=== PATIENT | male | born 1995 | race Caucasian/White ===

== ENCOUNTER 2020-06-12 10:49 | Outpatient (REF) | payer BC, SELFPAY ==
[2020-06-13 13:52] LABS: C. trachomatis RNA TMA DETECTED (NOT DETECTED); N. gonorrhoeae RNA TMA NOT DETECTED (NOT DETECTED)
[2020-06-14 01:52] LABS: Herpes Simplex Type 1 IgG <0.90 index; Herpes Simplex Type 2 IgG 3.17 index
[2020-06-15 04:08] LABS: HIV AB/AG Nonreactive (Nonreactive); HIV Num 1 0.09 S/CO (0.00-0.99)
== END 2020-06-12 10:50 | disposition home or self-care (01) ==
LOC: HO.HMGCLDS 10:49
PROVIDERS: PCP Internal Medicine; Visit Provider Internal Medicine
DX: Z11.3 Encounter for screening for infections with a predominantly sexual mode of transmission (principal); Z11.4 Encounter for screening for human immunodeficiency virus [HIV]; Z20.2 Contact with and (suspected) exposure to infections with a predominantly sexual mode of transmission
CPT/HCPCS: 36415; 86592; 86695; 86696; 86780; 87389; 87491; 87591

== ENCOUNTER 2021-02-03 12:22 | Outpatient (REF) | payer BC, SELFPAY ==
[2021-02-04 02:30] LABS: CT PCR NOT DETECTED (Not Detect.); NG PCR NOT DETECTED (Not Detect.)
[2021-02-04 09:56] LABS: Herpes Simplex Type 1 IgG <0.90 index; Herpes Simplex Type 2 IgG 2.14 index
[2021-02-05 08:10] LABS: Syphilis Screen Nonreactive (Nonreactive)
[2021-02-05 09:01] LABS: HIV AB/AG Nonreactive (Nonreactive)
== END 2021-02-03 12:23 | disposition home or self-care (01) ==
LOC: HO.HMGCLDS 12:22
PROVIDERS: PCP Internal Medicine; Visit Provider Internal Medicine
DX: Z11.3 Encounter for screening for infections with a predominantly sexual mode of transmission (principal)
CPT/HCPCS: 86695; 86696; 86780; 87389; 87491; 87591

== ENCOUNTER 2021-10-08 10:22 | Outpatient (REF) | payer BC, SELFPAY ==
[2021-10-08 10:25] LABS: MANUAL DIFF FLAG NO
[2021-10-08 11:14] LABS: Appearance Urine CLEAR; Color Urine YELLOW; Glucose Urine UA NEG (NEG); Leukocyte Esterase Urine NEG (NEG); Nitrite Urine NEG (NEG); Specific Gravity - Urine 1.025 (1.005-1.025); Urine Blood NEG (NEG); Urine Ketones NEG (NEG); Urine Protein NEG (NEG-TRACE)
[2021-10-08 11:17] LABS: Basophils Percent Auto 0.8 % (0-2); Eosinophils Absolute Auto 0.1 X10*3/uL (0.0-0.4); Eosinophils Percent Auto 2.8 % (0-4); Hematocrit 47.4 % (42.0-52.0); Hemoglobin 16.3 g/dl (14.0-18.0); Imm Gran Abs Auto 0.01 X10*3/uL (0.00-0.03); Imm Gran Pct Auto 0.2 % (0.0-0.4); Lymphocytes Absolute Auto 1.4 X10*3/uL (1.2-4.9); Lymphocytes Percent Auto 27.5 % (20-40); Mean Corpuscular HGB Conc 34.4 g/dl (31.0-36.0); Mean Corpuscular Volume 90.1 fL (80.0-98.0); Mean Platelet Volume 11.5 fL (9.4-12.4); Monocytes Absolute Auto 0.5 X10*3/uL (0.1-1.2); Monocytes Percent Auto 9.3 % (2-11); Neutrophils Percent Auto 59.4 % (45-73); Platelet Count 226 X10*3/uL (160-400); Red Blood Count 5.26 X10*6/uL (4.60-5.80); Red Cell Distribution Width 12.4 % (11.0-16.0); White Blood Count 5.1 X10*3/uL (4.8-10.8)
[2021-10-08 11:26] LABS: Alanine Aminotransferase 25 U/L (0-40); Albumin Level 4.4 g/dL (3.5-5.0); Alkaline Phosphatase 52 U/L (39-117); Anion Gap 12 (12-20); Aspartate Amino Transferase 21 U/L (5-37); Bilirubin Total 0.8 mg/dL (0.0-1.0); Blood Urea Nitrogen 12 mg/dL (9-16); Calcium 9.7 mg/dL (8.4-10.2); Carbon Dioxide 28 mmol/L (22-29); Chloride 104 mmol/L (96-108); Cholesterol 142 mg/dL; Estimated Glomerular Filt Rate > 60; Glucose Fasting 87 mg/dL (60-99); HDL Cholesterol 49 mg/dL; LDL Cholesterol Calculated 80 mg/dl; Sodium 140 mmol/L (135-145); Total Protein 6.9 g/dL (6.5-8.0); Triglycerides 69 mg/dL
== END 2021-10-08 10:23 | disposition home or self-care (01) ==
LOC: HO.LNP 10:22
PROVIDERS: Visit Provider Internal Medicine
DX: Z00.00 Encounter for general adult medical examination without abnormal findings (principal)
CPT/HCPCS: 80053; 80061; 81003; 85025

== ENCOUNTER 2022-10-14 10:21 | Outpatient (REF) | payer BC, SELFPAY ==
[2022-10-14 10:24] LABS: MANUAL DIFF FLAG NO
[2022-10-14 10:50] LABS: Basophils Percent Auto 0.6 % (0-2); Eosinophils Absolute Auto 0.1 X10*3/uL (0.0-0.4); Eosinophils Percent Auto 2.1 % (0-4); Hematocrit 48.6 % (42.0-52.0); Hemoglobin 16.9 g/dl (14.0-18.0); Imm Gran Abs Auto 0.01 X10*3/uL (0.00-0.03); Imm Gran Pct Auto 0.2 % (0.0-0.4); Lymphocytes Absolute Auto 1.4 X10*3/uL (1.2-4.9); Lymphocytes Percent Auto 27.3 % (20-40); Mean Corpuscular HGB Conc 34.8 g/dl (31.0-36.0); Mean Corpuscular Hemoglobin 30.8 pg (27.0-33.0); Mean Corpuscular Volume 88.7 fL (80.0-98.0); Mean Platelet Volume 11.1 fL (9.4-12.4); Monocytes Absolute Auto 0.5 X10*3/uL (0.1-1.2); Monocytes Percent Auto 9.2 % (2-11); Neutrophils Absolute Auto 3.1 x10*3/uL (2.0-8.3); Neutrophils Percent Auto 60.6 % (45-73); Platelet Count 242 X10*3/uL (160-400); Red Blood Count 5.48 X10*6/uL (4.60-5.80); Red Cell Distribution Width 12.2 % (11.0-16.0); White Blood Count 5.1 X10*3/uL (4.8-10.8)
[2022-10-14 11:12] LABS: Alanine Aminotransferase 36 U/L (0-40); Albumin Level 4.6 g/dL (3.5-5.0); Alkaline Phosphatase 58 U/L (39-117); Anion Gap 14 (12-20); Appearance Urine Clear; Aspartate Amino Transferase 25 U/L (5-37); Blood Urea Nitrogen 13 mg/dL (9-16); Carbon Dioxide 29 mmol/L (22-29); Chloride 102 mmol/L (96-108); Cholesterol 170 mg/dL; Color Urine Yellow; Estimated Glomerular Filt Rate > 60; Glucose Fasting 85 mg/dL (60-99); Glucose Urine UA Negative (Negative); HDL Cholesterol 50 mg/dL; LDL Cholesterol Calculated 102 mg/dl; Leukocyte Esterase Urine Negative (Negative); Nitrite Urine Negative (Negative); Potassium 4.3 mmol/L (3.3-5.1); Sodium 141 mmol/L (135-145); Specific Gravity - Urine 1.015 (1.005-1.025); Triglycerides 91 mg/dL; Urine Blood Negative (Negative); Urine Ketones Negative (Negative); Urine Protein Negative (Neg-Trace)
[2022-10-14 11:19] LABS: Bacteria Urine None Seen (None Seen); Hyaline Casts Urine 0-2 /LPF (0-2); RBC Urine 0-2 /HPF (0-2); Squamous Epithelial Cell Urine 0-2 /HPF (0-2); WBC Urine 0-5 /HPF (0-5)
== END 2022-10-14 10:22 | disposition home or self-care (01) ==
LOC: HO.LNP 10:21
PROVIDERS: Visit Provider Internal Medicine
DX: Z00.00 Encounter for general adult medical examination without abnormal findings (principal)
CPT/HCPCS: 80053; 80061; 81001; 85025

== ENCOUNTER 2023-10-16 10:47 | Outpatient (REF) | payer BC, SELFPAY ==
[2023-10-16 10:51] LABS: MANUAL DIFF FLAG NO
[2023-10-16 11:10] LABS: Basophils Percent Auto 0.6 % (0-2); Eosinophils Absolute Auto 0.1 X10*3/uL (0.0-0.4); Eosinophils Percent Auto 2.7 % (0-4); Hematocrit 45.9 % (42.0-52.0); Hemoglobin 15.9 g/dl (14.0-18.0); Imm Gran Abs Auto 0.01 X10*3/uL (0.00-0.03); Imm Gran Pct Auto 0.2 % (0.0-0.4); Lymphocytes Absolute Auto 1.5 X10*3/uL (1.2-4.9); Lymphocytes Percent Auto 29.2 % (20-40); Mean Corpuscular HGB Conc 34.6 g/dl (31.0-36.0); Mean Corpuscular Hemoglobin 30.1 pg (27.0-33.0); Mean Corpuscular Volume 86.9 fL (80.0-98.0); Mean Platelet Volume 11.2 fL (9.4-12.4); Monocytes Absolute Auto 0.5 X10*3/uL (0.1-1.2); Neutrophils Absolute Auto 3.1 x10*3/uL (2.0-8.3); Neutrophils Percent Auto 58.3 % (45-73); Platelet Count 257 X10*3/uL (160-400); Red Blood Count 5.28 X10*6/uL (4.60-5.80); Red Cell Distribution Width 12.3 % (11.0-16.0); White Blood Count 5.2 X10*3/uL (4.8-10.8)
[2023-10-16 11:37] LABS: Appearance Urine Clear; Color Urine Yellow; Glucose Urine UA Negative (Negative); Leukocyte Esterase Urine Negative (Negative); Nitrite Urine Negative (Negative); PH 6.5 (5.0-9.0); Specific Gravity - Urine <= 1.005 (1.005-1.025); Urine Blood Negative (Negative); Urine Ketones Negative (Negative); Urine Protein Negative (Neg-Trace)
[2023-10-16 11:42] LABS: Bacteria Urine None Seen (None Seen); Hyaline Casts Urine 0-2 /LPF (0-2); RBC Urine 0-2 /HPF (0-2); Squamous Epithelial Cell Urine 0-2 /HPF (0-2); WBC Urine 0-5 /HPF (0-5)
[2023-10-16 11:46] LABS: Alanine Aminotransferase 28 U/L (0-40); Albumin Level 4.2 g/dL (3.5-5.0); Alkaline Phosphatase 65 U/L (39-117); Anion Gap 15 (12-20); Aspartate Amino Transferase 23 U/L (5-37); Bilirubin Total 0.6 mg/dL (0.0-1.0); Blood Urea Nitrogen 9 mg/dL (9-16); Calcium 9.4 mg/dL (8.4-10.2); Carbon Dioxide 27 mmol/L (22-29); Chloride 102 mmol/L (96-108); Cholesterol 155 mg/dL (<200); Estimated Glomerular Filt Rate > 60; Glucose Fasting 90 mg/dL (60-99); HDL Cholesterol 36 mg/dL (>40); LDL Cholesterol Calculated 87 mg/dL (<100); Sodium 140 mmol/L (135-145); Total Protein 6.9 g/dL (6.5-8.0); Triglycerides 162 mg/dL (<150)
== END 2023-10-16 10:48 | disposition home or self-care (01) ==
LOC: HO.LNP 10:47
PROVIDERS: Visit Provider Internal Medicine
DX: Z00.00 Encounter for general adult medical examination without abnormal findings (principal)
CPT/HCPCS: 80053; 80061; 81001; 85025

== ENCOUNTER 2024-10-15 09:50 | Outpatient (REF) | payer BC, SELFPAY ==
[2024-10-15 09:53] LABS: MANUAL DIFF FLAG NO
--- OUTSIDE RECORDS SUMMARY | 2024-10-15 10:37 | XMS_ITS | Encounter Summary ---
Author Organization [facility] Address [address] [place] [address] Phone Care Team Providers Care Journeyman Pressman Name Role Phone Alla Menezes MD Primary Care Provider [phone] Encounter Details Date Type Department Care Team (Late st Contact Info) Description 01/16/2015 Documentation [facility] [place] Family Medicine [address] [place] [address] Family Medicine, Physician [address] [place], [place] [phone] Social History Tobacco Use Types Packs/Day Years Used Date Smoking Tobacco: Never Assessed Sex and Gender Information Value Date Recorded Sex Assigned at Not on file Legal Sex Male 5:10 PM EDT Gender Identity Not on file Sexual Orientation Not on file documented as of this encounter Plan of Treatment Not on file documented as of this encounter Visit Diagnoses Not on filedocumented in this encounter Care Teams Journeyman Pressman Relationship Specialty Start Date End Date Alla Menezes MD [address] [place] [address] RAINER Erwin [address] PCP - General 01/13/17 06/12/17 documented as of this encounter
--- OUTSIDE RECORDS SUMMARY | 2024-10-15 10:37 | XMS_ITS | Encounter Summary ---
Author Organization [facility] Address [address] [place] [address] Phone Care Team Providers Care Limousine And Hearse Upholsterer Name Role Phone Alla Menezes MD Primary Care Provider [phone] Encounter Details Date Type Department Care Team (Late st Contact Info) Description 01/19/2016 Documentation [facility] [place] [address] [place] [address] Family Medicine, Physician [address] [place], [place] [phone] Social History Tobacco Use Types Packs/Day Years Used Date Smoking Tobacco: Never Comments:Never smoker Sex and Gender Information Value Date Recorded Sex Assigned at Not on file Legal Sex Male 5:10 PM EDT Gender Identity Not on file Sexual Orientation Not on file documented as of this encounter Plan of Treatment Not on file documented as of this encounter Visit Diagnoses Not on filedocumented in this encounter Care Teams Limousine And Hearse Upholsterer Relationship Specialty Start Date End Date Alla Menezes MD [address] [place] [address] RAINER Erwin [address] PCP - General 01/13/17 06/12/17 documented as of this encounter
--- OUTSIDE RECORDS SUMMARY | 2024-10-15 10:37 | XMS_ITS | Encounter Summary ---
Author Organization [facility] Address [address] [place] [address] Phone Care Team Providers Care Recruiter Coordinator Name Role Phone Alla Menezes MD Primary Care Provider [phone] Encounter Details Date Type Department Care Team (Late st Contact Info) Description 01/19/2016 Documentation [facility] [place] [address] [place] [address] Family Medicine, Physician [address] [place], [place] [phone] Social History Tobacco Use Types Packs/Day Years [...] on filedocumented in this encounter Care Teams Recruiter Coordinator Relationship Specialty Start Date End Date Alla Menzees MD [address] [place] [address] RAINER Erwin [address] PCP - General 01/13/17 06/12/17 documented as of this encounter
--- OUTSIDE RECORDS SUMMARY | 2024-10-15 10:37 | XMS_ITS | Encounter Summary ---
Author Organization [facility] Address [address] [place] [address] Phone Care Team Providers Care Sample Book Maker Name Role Phone Alla Menezes MD Primary Care Provider [phone] Encounter Details Date Type Department Care Team (Late st Contact Info) Description 08/16/2012 Documentation [facility] [place] Family Medicine [address] [place] [address] Family Medicine, Physician [address] [place], [place] [phone] Social History Tobacco Use Types Packs/Day Years [...] on filedocumented in this encounter Care Teams Sample Book Maker Relationship Specialty Start Date End Date Alla Menezes MD [address] [place] [address] RAINER Erwin [address] PCP - General 01/13/17 06/12/17 documented as of this encounter
--- OUTSIDE RECORDS SUMMARY | 2024-10-15 10:37 | XMS_ITS | Encounter Summary ---
Author Organization [facility] Address [address] [place] [address] Phone Care Team Providers Care Quality Assurance Lead Name Role Phone Alla Menezes MD Primary Care Provider [phone] Encounter Details Date Type Department Care Team (Late st Contact Info) Description 01/10/2014 Documentation [facility] [place] Family Medicine [address] [place] [address] Family Medicine, Physician [address] [place], [place] [phone] Social History Tobacco Use Types Packs/Day Years [...] on filedocumented in this encounter Care Teams Quality Assurance Lead Relationship Specialty Start Date End Date Alla Menezes MD [address] [place] [address] RAINER Erwin [address] PCP - General 01/13/17 06/12/17 documented as of this encounter
--- OUTSIDE RECORDS SUMMARY | 2024-10-15 10:37 | XMS_ITS | Clinical Summary ---
Author Organization [facility] Address [address] [place] [address] Phone Care Team Providers Care Hot Punch Press Operator Name Role Phone Unavailable Primary Care Provider Unavailabl e Immunizations Immunization Administration Dates Next Due DTaP 5 12/31/2001, 8,06/27/1997, 997,02/28/1997 HPV, Quadrivalent 01/15/2015,01/09/2014,08/16/19 13 Hep A, ped/adol 01/15/2015,01/09/2014 Hep B, ped/adol 09/29/1997,02/28/1997,1996 Hib (PRP-T) 04/03/1998, 8,04/23/1997, 997 IPV 12/31/2001, 8,04/13/1997, 997 Influenza, injectable, trivalent 02/26/2009 Influenza, intranasal, quadrivalent 03/19/2014 MMR 02/02/2001,12/29/1997 Meningococcal Conj (Menactra) MCV4P 01/09/2014,0 02/13/2008 Pneumococcal Conjugate 01/06/2002 Tdap 02/13/2008 Varicella 02/13/2008,04/03/1998 Family History Relation Name Status Comments Father Father: crohns Mother Alive Mother: Alive a nd well Other Family history of Cancer, prostate, Family history of ADD/ADHD, Family history of Cancer, colon, Family history of Cancer, lung Social History Tobacco Use Types Packs/Day Years Used Date Smoking Tobacco: Never Comments:Never smoker Sex and Gender Information Value Date Recorded Sex Assigned at Not on file Legal Sex Male 5:10 PM EDT Gender Identity Not on file Sexual Orientation Not on file Last Filed Vital Signs Vital Sign Reading Time Taken Comments Blood Pressure 115/88 01/18/2016 12:00 AM EDT Pulse 69 01/15/2015 12:00 AM EDT Temperature 36.6 ??C (97.8 ??F) 01/18/2016 12:00 AM E DT Respiratory Rate - - Oxygen Saturation - - Inhaled Oxygen Concentration - - Weight 51.7 kg (114 lb) 01/18/2016 12:00 AM EDT Height 170.2 cm (5' 7 ) 01/18/2016 12:00 AM EDT Body Mass Index 17.85 01/18/2016 12:00 AM EDT Plan of Treatment Health Maintenance Due Date Last Done Comments DTaP,Tdap,and Td Vaccines (7 - Td or Tdap) 02/12/2018 02/13/2008, 12/31/2001, 04/03/1998, Additional history exists Influenza Vaccines (#1) 2024 03/19/2014, 02/26 COVID-19 Vaccine ( season) 2024 Hepatitis B Vaccines Completed 09/29/1997, 02/28/1997, 1996 HIB Vaccines Completed 04/03/1998, 06/06, 04/23/1997, Additional history exists MMR Vaccines Completed 02/02/2001, 12/29/1997 IPV Vaccines Completed 12/31/2001, 12/04, 04/13/1997, Additional history exists Pneumococcal Vaccine Aged Out 01/06/2002 No long er eligible based on patient's age to complete this topic Varicella Vaccines Completed 02/13/2008, 04/03/1998 Meningococcal Vaccine Completed 01/09/2014, 008 HPV Vaccines Completed 01/15/2015, 0812/2013, 08/15/2012 Hepatitis A Vaccines Completed 01/15/2015, 01/10/20 14 Men B Vaccine Aged Out No longer elig ible based on patient's age to complete this topic [place] [address] [place] [address] HMO
--- OUTSIDE RECORDS SUMMARY | 2024-10-15 10:37 | XMS_ITS | Encounter Summary ---
Author Organization [facility] Address [address] [place] [address] Phone Care Team Providers Care Professor Of Pathology Name Role Phone Alla Menezes MD Primary Care Provider [phone] Encounter Details Date Type Department Care Team (Late st Contact Info) Description 08/16/2012 [place]ation [facility] [place] [address] [place] [address] Family Medicine, Physician [address] [place], [place] [phone] Social History Tobacco Use Types Packs/Day Years [...] on filedocumented in this encounter Care Teams Professor Of Pathology Relationship Specialty Start Date End Date Alla Menezes MD [address] [place] [address] RAINER Erwin [address] PCP - General 01/13/17 06/12/17 documented as of this encounter
--- OUTSIDE RECORDS SUMMARY | 2024-10-15 10:37 | XMS_ITS | Encounter Summary ---
Author Organization [facility] Address [address] [place] [address] Phone Care Team Providers Care Line Installer Repairer Name Role Phone Alla Menezes MD Primary Care Provider [phone] Encounter Details Date Type Department Care Team (Late st Contact Info) Description 08/16/2012 Documentation [facility] [place] [address] [place] [address] Family Medicine, Physician [address] [place], [place] [phone] Social History Tobacco Use Types Packs/Day Years [...] on filedocumented in this encounter Care Teams Line Installer Repairer Relationship Specialty Start Date End Date Alla Menezes MD [address] [place] [address] RAINER Erwin [address] PCP - General 01/13/17 06/12/17 documented as of this encounter
--- OUTSIDE RECORDS SUMMARY | 2024-10-15 10:37 | XMS_ITS | Encounter Summary ---
Author Organization [facility] Address [address] [place] [address] Phone Care Team Providers Care Clinical Research Analyst Name Role Phone Alla Menezes MD Primary Care Provider [phone] Encounter Details Date Type Department Care Team (Late st Contact Info) Description 08/19/2011 Documentation [facility] [place] Family Medicine [address] [place] [address] Family Medicine, Physician [address] [place], [place] [phone] Social History Tobacco Use Types Packs/Day Years [...] on filedocumented in this encounter Care Teams Clinical Research Analyst Relationship Specialty Start Date End Date Alla Menezes MD [address] [place] [address] RAINER Erwin [address] PCP - General 01/13/17 06/12/17 documented as of this encounter
--- OUTSIDE RECORDS SUMMARY | 2024-10-15 10:37 | XMS_ITS | Encounter Summary ---
Author Organization [facility] Address [address] [place] [address] Phone Care Team Providers Care Rn Psych Name Role Phone Alla Menezes MD Primary Care Provider [phone] Encounter Details Date Type Department Care Team (Late st Contact Info) Description 01/16/2015 Documentation [facility] [place] [address] [place] [address] Family Medicine, Physician [address] [place], [place] [phone] Social History Tobacco Use Types Packs/Day Years [...] on filedocumented in this encounter Care Teams Rn Psych Relationship Specialty Start Date End Date Alla Menezes MD [address] [place] [address] RAINER Erwin [address] PCP - General 01/13/17 06/12/17 documented as of this encounter
--- OUTSIDE RECORDS SUMMARY | 2024-10-15 10:37 | XMS_ITS | Encounter Summary ---
Author Organization [facility] Address [address] [place] [address] Phone Care Team Providers Care Lighting Fixture Installer Name Role Phone Alla Menezes MD Primary Care Provider [phone] Encounter Details Date Type Department Care Team (Late st Contact Info) Description 08/19/2011 Documentation [facility] [place] [address] [place] [address] Family Medicine, Physician [address] [place], [place] [phone] Social History Tobacco Use Types Packs/Day Years [...] on filedocumented in this encounter Care Teams Lighting Fixture Installer Relationship Specialty Start Date End Date Alla Menezes MD [address] [place] [address] RAINER Erwin [address] PCP - General 01/13/17 06/12/17 documented as of this encounter
--- OUTSIDE RECORDS SUMMARY | 2024-10-15 10:37 | XMS_ITS | Encounter Summary ---
Author Organization [facility] Address [address] [place] [address] Phone Care Team Providers Care Back Tender Pulp Drier Name Role Phone Alla Menezes MD Primary Care Provider [phone] Encounter Details Date Type Department Care Team (Late st Contact Info) Description 01/15/2015 Documentation [facility] [place] [address] [place] [address] Family Medicine, Physician [address] [place], [place] [phone] Social History Tobacco Use Types Packs/Day Years [...] on filedocumented in this encounter Care Teams Back Tender Pulp Drier Relationship Specialty Start Date End Date Alla Menezes MD [address] [place] [address] RAINER Erwin [address] PCP - General 01/13/17 06/12/17 documented as of this encounter
--- OUTSIDE RECORDS SUMMARY | 2024-10-15 10:37 | XMS_ITS | Encounter Summary ---
Author Organization [facility] Address [address] [place] [address] Phone Care Team Providers Care Box Toe Maker Name Role Phone Alla Menezes MD Primary Care Provider [phone] Encounter Details Date Type Department Care Team (Late st Contact Info) Description 01/19/2016 Documentation [facility] [place] [address] [place] [address] Family Medicine, Physician [address] [place], [place] [phone] Social History Tobacco Use Types Packs/Day Years [...] on filedocumented in this encounter Care Teams Box Toe Maker Relationship Specialty Start Date End Date Alla Menezes MD [address] [place] [address] RAINER Erwin [address] PCP - General 01/13/17 06/12/17 documented as of this encounter
--- OUTSIDE RECORDS SUMMARY | 2024-10-15 10:37 | XMS_ITS | Patient Health Record ---
Author Organization Carlos West MD Address [address] [place], [place] [id number] Care Team Providers Care Silk Screen Cutter Name Role Phone Carlos West Primary Care Provider Allergies No Known Allergies Results Component Value Reference Range Notes Hold Gold Reviewed date:10/16/2023 12:35:52 PM Interpretation: Performing Lab:[facility], [address] [place] [phone] Notes/Report: Hold Gold See Note Specimen held untested for 24 hours; Call to request Chemistry testing. Complete Blood Count Auto Di ff Reviewed date:10/16/2023 12:43:10 PM Interpretation: Performing Lab:[facility], [address] [place] [phone] Notes/Report: White Blood Count 5.2 4.8-10.8 X10*3/uL Red Blood Count 5.28 4.60-5.80 X10*6/uL Hemoglobin 15.9 14.0-18.0 g/dl Hematocrit 45.9 42.0-52.0 % Mean Corpuscular Volume 86.9 80.0-98.0 fL Mean Corpuscular Hemoglobin 30.1 27.0-33.0 pg Mean Corpuscular HGB Conc 34.6 31.0-36.0 g/dl Red Cell Distribution Width 12.3 11.0-16.0 % Platelet Count 257 160-400 X10*3/uL Mean Platelet Volume 11.2 9.4-12.4 fL Neutrophils Percent Auto 58.3 45-73 % Imm Gran Pct Auto 0.2 0.0-0.4 % Lymphocytes Percent Auto 29.2 20-40 % Monocytes Percent Auto 9.0 2-11 % Eosinophils Percent Auto 2.7 0-4 % Basophils Percent Auto 0.6 0-2 % NRBC Pct Auto 0.0 0.0-0.2 /100WBC Neutrophils Absolute Auto 3.1 2.0-8.3 x10*3/u L Imm Gran Abs Auto 0.01 0.00-0.03 X10*3/uL Lymphocytes Absolute Auto 1.5 1.2-4.9 X10*3/u L Monocytes Absolute Auto 0.5 0.1-1.2 X10*3/uL Eosinophils Absolute Auto 0.1 0.0-0.4 X10*3/u L Basophils Absolute Auto 0.0 0.0-0.2 X10*3/uL NRBC Abs Auto 0.000 0.0-0.012 X10*3/uL Comprehensive Hammond. Panel Fa st Reviewed date:10/16/2023 12:37:01 PM Interpretation: Performing Lab:[facility], [address] [place] [phone] Notes/Report: Sodium 140 135-145 mmol/L Potassium 4.0 3.3-5.1 mmol/L Chloride 102 96-108 mmol/L Carbon Dioxide 27 22-29 mmol/L Anion Gap 15 12-20 Blood Urea Nitrogen 9 9-16 mg/dL Creatinine 0.86 0.5-1.4 mg/dL Estimated Glomerular Filt Rate > 60 NOTE: For -Spanish individuals, multiply the result by 1.210. Chronic Kidney Disease: Estimated GFR < 60 mL/min/1.73m2 Severe Kidney Disease: Estimated GFR < 15 mL/min/1.73m2 Glucose Fasting 90 60-99 mg/dL Calcium 9.4 8.4-10.2 mg/dL Bilirubin Total 0.6 0.0-1.0 mg/dL Aspartate Amino Transferase 23 5-37 U/L Alanine Aminotransferase 28 0-40 U/L Total Protein 6.9 6.5-8.0 g/dL Albumin Level 4.2 3.5-5.0 g/dL Alkaline Phosphatase 65 39-117 U/L Lipid Panel Reviewed date:10/16/2023 12:35:01 PM Interpretation: Performing Lab:[address] [place] [phone] Notes/Report: Triglycerides 162 <150 mg/dL Desirable Triglyceride: less than 150 mg/dL Borderline High Triglyceride 150-199 mg/dL High Triglyceride: 200-499 mg/dL Very High Triglyceride: greater than or equal to 5OO mg/dL Cholesterol 155 <200 mg/dL Desirable Cholesterol: less than 200 mg/dL Borderline High Cholesterol: 200-239 mg/dL High Cholesterol: greater than 239 mg/dL LDL Cholesterol Calculated 87 <100 mg/dL Desirable LDL: less than 100 mg/dL Near Optimal/Above Optimal LDL: 110-129 mg/dL Borderline High LDL: 130-159 mg/dL High LDL: 160-189 mg/dL Very High LDL: greater than or equal to 190 mg/dL HDL Cholesterol 36 >40 mg/dL Desirable HDL: greater than 40 mg/dL Note: This HDL assay may give artificially low results in patients with liver disease. UA ClnCatch+Micro w/rflx Cul t Reviewed date:10/17/2023 04:17:56 PM Interpretation: Performing Lab:[facility], [address] [place] [phone] Notes/Report: Urine, Clean Catch Color Urine Yellow Appearance Urine Clear PH 6.5 5.0-9.0 Glucose Urine UA Negative Negative mg/dL Urine Blood Negative Negative Specific [place] - Urine <= 1.005 1.005-1.025 Urine Protein Negative Neg-Trace mg/dL Urine Ketones Negative Negative mg/dL Nitrite Urine Negative Negative Leukocyte Esterase Urine Negative Negative RBC Urine 0-2 0-2 /HPF WBC Urine 0-5 0-5 /HPF Squamous Epithelial Cell Urine 0-2 0-2 /HPF Bacteria Urine None Seen None Seen Hyaline Casts Urine 0-2 0-2 /LPF Reason For Referral Reason BLEEDING NOSE Diagnosis 1 Bleeding nose (R04.0 ) Referral Organization Carlos West MD Referring Provider First Name Carlos Referring Provider Last Name Brett Referring Provider Speciality Internal M edicine Referred Provider Vishal Diaz Referred Provider Specialty Otolaryngolo gy General Notes Brenda Beckett 2023 02:20:05 PM EDT > THI S REFERRAL HAS BEEN FAXED TWICE WITH REQUESTS FOR APPTS. I CALLED THE PATIENT TODAY TO SEE IF HE HAS HEARD FROM ENT AND HE HAS NOT., Brenda Beckett 01/15/2024 03:14:08 PM EDT >OFFICE NOTES SARASujit Patti A 07/23/2024 10:28:22 AM > Referral Priority Routine Referral Appointment Date 06/28/2024 Medications Medication SIG (Take, Route, Frequency, Duration) Notes Start Date End Date Status Claritin-D 24 Hour 10-240 MG 1 tablet as needed Orally Once a day for 30 day(s) Not-Taking Doxycycline Hyclate 100 MG 1 capsule Orally Once a day for 10 day(s) 06/11/2020 Not-Taking valACYclovir HCl 500 MG 1 tablet Orally Once a day for 90 days 07/02/2024 Active Immunizations Vaccine Route Administration Date Status Comme nts SARS-COV-2 Pfizer Unknown 09/29/2020 Administered SARS-COV-2 Pfizer Unknown 10/20/2020 Administered Fluarix Quadrivalent Unknown 06/12/2018 Refused Fluarix Quadrivalent Unknown 02/18/2021 Refused Social History Tobacco Use: Social History Observation Description Date Details (start date - stop date) Never Smoker NA - NA Tobacco Use/Smoking Question Answer Notes Patient is a nonsmoker Additional Findings: Tobacco Non-User Cu rrent non-smoker, currently using no form of tobacco Alcohol Screen Question Answer Notes Did you have a drink contain ing alcohol in the past year? Yes How often did you have a dri nk containing alcohol in the past year? Monthly or less (1 point) How many drinks did you have on a typical day when you were drinking in the past year? 1 or 2 drinks (0 point) How often did you have 6 or more drinks on one occasion in the past year? Never (0 point) Points 1 Interpretation Negative Problems No Known Problems Vital Signs Blood pressure diastolic 68 mm Hg 10/23/2023 breanne ght is up 7 pounds since 10-20-22 Height 68 in 10/23/2023 weight is up 7 pounds since 10-20-22 Blood pressure systolic 112 mm Hg 10/23/2023 weig ht is up 7 pounds since 10-20-22 Weight 143 lbs 10/23/2023 weight is up 7 pounds since 10-20-22 BMI 21.74 kg/m2 10/23/2023 weight is up 7 pounds since 10-20-22 Encounters Encounter Location Date Provider Diagnosis Carlos West MD [address] [place], [place] [id number] 10/16/2023 Carlos West Blood tests for routine general physical examination Z00.00 Carlos West MD [address] [place] [address] [address] [place] [id number] 10/15/2024 Carlos West Blood tests for routine general physical examination Z00.00 Carlos West MD [address] [place] [id number] 10/23/2023 Carlos West Skin lesion L98.9 ; Annual physical exam Z00.00 ; Dysfunction of both eustachian tubes H69.93 and Bleeding nose R04.0 Carlos West MD [address] [place] [address] Drive [address] [place] [id number] 07/02/2024 Carlos West Assessments Encounter Date Diagnosis (ICD Code) Assessment Notes Treatment Notes Treatment Clinical Notes Section Notes 10/16/2023 Blood tests for routine general physical examination (ICD-10 - Z00.00) 10/15/2024 Blood tests for routine general physical examination (ICD-10 - Z00.00) 10/23/2023 Skin lesion (ICD-10 - L98.9) HIEU WANTED THE ADDRESS AND NUMBER FOR [facility] WHERE A FAMILY MEMBER GOES. ALL INFO GIVEN 10/23/2023 Annual physical exam (ICD-10 - Z00.00) Labs reviewed and discussed with patient 10/23/2023 Dysfunction of both eustachian tubes (ICD-10 - H69.93) try flonase 10/23/2023 Bleeding nose (ICD-10 - R04.0) refer to ent/ WILL REFER TO ENT IN [place], [place] . THEY HAVE THEIR OWN REFERRAL SHEET THAT I WILL COMPLETE AND FAX TO THEM Plan Of Treatment Pending Test Test Name Order Date Complete Blood Count Auto Diff 5 Comprehensive Hammond. Panel Fast 5 Lipid Panel 10/15/2024 UA ClnCatch+Micro w/rflx Cult 10/15/2024 Next Appt Details Provider Name:Carlos Johnson ier, 10/29/2024 02:30:00 PM, [address] [facility], [address] [facility], [place], [place], [id number], Insurance Providers Payer Name Payer Address Payer Phone Subscriber Number Group Number Insured Name Patient Relationship to Insured Coverage Start Date Coverage End Date BLUE [employer] BLUE [facility] [address] [place], [place] [id number] Hieu Sewell Self - patient is the insured
--- OUTSIDE RECORDS SUMMARY | 2024-10-15 10:37 | XMS_ITS | Encounter Summary ---
Author Organization [facility] Address [address] [place] [address] Phone Care Team Providers Care Communications Intern Name Role Phone Alla Menezes MD Primary Care Provider [phone] Encounter Details Date Type Department Care Team (Late st Contact Info) Description 08/16/2012 Documentation [facility] [address] [place] [address] Family Medicine, Physician [address] [place], [place] [phone] Social History Tobacco Use Types Packs/Day Years [...] on filedocumented in this encounter Care Teams Communications Intern Relationship Specialty Start Date End Date Alla Menezes MD [address] [place] [address] RA[place]ER Erwin [phone] PCP - General 01/13/17 06/12/17 documented as of this encounter
--- OUTSIDE RECORDS SUMMARY | 2024-10-15 10:37 | XMS_ITS | Encounter Summary ---
Author Organization [facility] Address [address] [place] [address] Phone Care Team Providers Care Public Health Staff Nurse Name Role Phone Alla Menezes MD Primary Care Provider [phone] Encounter Details Date Type Department Care Team (Late st Contact Info) Description 01/19/2016 Documentation [facility] [place] [facility] [address] [place] [address] Family Medicine, Physician [address] [place], [place] [phone] Social History Tobacco Use Types Packs/Day Years [...] on filedocumented in this encounter Care Teams Public Health Staff Nurse Relationship Specialty Start Date End Date Alla Menezes MD [address] [place] [address] [place] [phone] PCP - General 01/13/17 06/12/17 documented as of this encounter
--- OUTSIDE RECORDS SUMMARY | 2024-10-15 10:37 | XMS_ITS | Encounter Summary ---
Author Organization [facility] Address [address] [place] [address] Phone Care Team Providers Care Medical Technical Writer Name Role Phone Alla Menezes MD Primary Care Provider [phone] Encounter Details Date Type Department Care Team (Late st Contact Info) Description 03/20/2014 Documentation [facility] [place] [facility] [address] [place] [address] Family Medicine, Physician [address] [place], [place] [phone] Social History Tobacco Use Types Packs/Day Years [...] on filedocumented in this encounter Care Teams Medical Technical Writer Relationship Specialty Start Date End Date Alla Menezes MD [address] [place] [address] [place] [address] PCP - General 01/13/17 06/12/17 documented as of this encounter
--- OUTSIDE RECORDS SUMMARY | 2024-10-15 10:37 | XMS_ITS | Encounter Summary ---
Author Organization [facility] Address [address] [place] [address] Phone Care Team Providers Care Product Finisher Name Role Phone Alla Menezes MD Primary Care Provider [phone] Encounter Details Date Type Department Care Team (Late st Contact Info) Description 01/19/2017 Conversion Encounter [facility] [place] [address] [place] [address] Social History Tobacco Use Types Packs/Day Years [...] on filedocumented in this encounter Care Teams Product Finisher Relationship Specialty Start Date End Date Alla Menezes MD [address] [place] [address] PCP - General 01/13/17 06/12/17 documented as of this encounter
--- OUTSIDE RECORDS SUMMARY | 2024-10-15 10:37 | XMS_ITS | Encounter Summary ---
Author Organization [facility] Address [address] [place] [address] Phone Care Team Providers Care Long Line Teamster Name Role Phone Alla Menezes MD Primary Care Provider [phone] Encounter Details Date Type Department Care Team (Late st Contact Info) Description 03/20/2014 Documentation [facility] [place] [facility] [address] [place] [address] Family Medicine, Physician [address] [place], [place] [phone] Social History Tobacco Use Types Packs/Day Years [...] on filedocumented in this encounter Care Teams Long Line Teamster Relationship Specialty Start Date End Date Alla Menezes MD [address] [place] [address] [place] Er[place] [address] PCP - General 01/13/17 06/12/17 documented as of this encounter
--- OUTSIDE RECORDS SUMMARY | 2024-10-15 10:37 | XMS_ITS | Encounter Summary ---
Author Organization [facility] Address [address] [place] [address] Phone Care Team Providers Care Electrical Appliance Repairer Name Role Phone Alla Menezes MD Primary Care Provider [phone] Encounter Details Date Type Department Care Team (Late st Contact Info) Description 01/15/2015 Documentation [facility] [place] Family Medicine [address] [place] [address] Family Medicine, Physician [address] [place], [place] [phone] Social History Tobacco Use Types Packs/Day Years [...] on filedocumented in this encounter Care Teams Electrical Appliance Repairer Relationship Specialty Start Date End Date Alla Menezes MD [address] [place] [address] [place] [address] PCP - General 01/13/17 06/12/17 documented as of this encounter
--- OUTSIDE RECORDS SUMMARY | 2024-10-15 10:37 | XMS_ITS ---
Author Organization Carlos West MD Address [address] [place], [place] [id number] Care Team Providers Care Bacon Skin Lifter Name Role Phone Carlos West Primary Care Provider Allergies No Known Allergies Reason For Referral Reason BLEEDING NOSE Diagnosis [...] Beckett 01/15/2024 03:14:08 PM EDT >OFFICE NOTES Sujit RUIZ Patti A 07/23/2024 10:28:22 AM > Referral Priority Routine Referral Appointment Date 06/28/2024 REASON FOR VISIT ANNUAL EXAM, No Covid symptoms Medications Medication SIG (Take, Route, Frequency, Duration) Notes Start Date End Date Status Claritin-D 24 Hour 10-240 MG 1 tablet as needed Orally Once a day for 30 day(s) Not-Taking Doxycycline Hyclate 100 MG 1 capsule Orally Once a day for 10 day(s) 06/11/2020 Not-Taking Social History Tobacco Use: Social History Observation [...] No Known Problems Vital Signs Blood pressure systolic 112 mm Hg 10/23/19 24 Blood pressure diastolic 68 mm Hg 024 Height 68 in 10/23/2023 Weight 143 lbs 10/23/2023 BMI 21.74 kg/m2 10/23/2023 weight is up 7 pounds since 10-20-22 Encounters Encounter Location Date Provider Diagnosis Carlos West MD [address] [place] [address] [place] [phone] 10/23/2023 Carlos West Skin lesion L98.9 ; Annual physical exam Z00.00 ; Dysfunction of both eustachian tubes H69.93 and Bleeding nose R04.0 Assessments Encounter Date Diagnosis (ICD Code) Assessment Notes Treatment Notes Treatment Clinical Notes Section Notes 10/23/2023 Skin lesion (ICD-10 - L98.9) HIEU WANTED THE ADDRESS AND NUMBER FOR [facility] WHERE A FAMILY MEMBER GOES. ALL INFO GIVEN 10/23/2023 Annual physical exam (ICD-10 - Z00.00) Labs reviewed and discussed with patient 10/23/2023 Dysfunction of both eustachian tubes (ICD-10 - H69.93) try flonase 10/23/2023 Bleeding nose (ICD-10 - R04.0) refer to ent/ WILL REFER TO ENT IN [place], [place] . THEY HAVE THEIR OWN REFERRAL SHEET THAT I WILL COMPLETE AND FAX TO THEM Plan Of Treatment Treatment Notes Assessment Notes Skin lesion HIEU WANTED THE ADD RESS AND NUMBER FOR [facility] WHERE A FAMILY MEMBER GOES. ALL INFO GIVEN Annual physical exam Labs reviewed and d iscussed with patient Dysfunction of both eustachian tubes try flonase Bleeding nose refer to ent/ WILL R EFER TO ENT IN [place], [place] . THEY HAVE THEIR OWN REFERRAL SHEET THAT I WILL COMPLETE AND FAX TO THEM Referrals Referral Date Details 01/15/2024 01/15/2024, BLEEDING NOSE, Vishal Schreibstein Next Appt Details Follow Up: 1 Year, Reason: Provider Name:Carlos Johnson ier, 10/29/2024 02:30:00 PM, [address], [address], [place], [place], [phone], Progress Notes * Hieu SEWELL MDOB:1995 (27 yo M)Acc No.[id number]:10/23/2023 Progress Notes Patient:?Melodie Hieu Cavanaugh Provider:?Carlos West MD :1995???Age:27 Y???Sex:Male Sven e:10/23/2023 Address:[address] [place], [place] [id number] Subjective: * Chief Complaints: * ???ANNUAL EXAMNo Covid sympt oms * HPI: ???Depression Screening:?PHQ-9?Little interest or pleasure in doing things?Not at all,?Feeling down, depressed, or hopeless?Not at all,?Trouble falling or staying asleep, or sleeping too much?Not at all,?Feeling tired or having little energy?Not at all,?Poor appetite or overeating?Not at all,?Feeling bad about yourself or that you are a failure, or have let yourself or your family down?Not at all,?Trouble concentrating on things, such as reading the newspaper or watching television?Not at all,?Moving or speaking so slowly that other people could have noticed; or the opposite, being so fidgety or restless that you have been moving around a lot more than usual?Not at all,?Thoughts that you would be better off or of hurting yourself in some way?Not at all,?Total Score?0.?Interpretation and Intervention?Depression Screening Findings?Negative,?Follow-Up for Depression?: review of PHQ-9 found negative result, no follow-up needed.? patient is a 27 yo male here for annual visit with review of recent labs and follow up of chronic issues, getting bloody nose on on rt side that occurs frequently. went to ent and they said that he needed to correct a deviated septum. ???Communication Needs:?Communication Needs?Does the patient have a hearing impairment?No,?Does the patient have a vision impairment??No,?Does the patient have a cognition impairment??No.?SDOH Questions:?SDOH Questions?In the past year have you been worried about losing housing??No,?In the past year have you or any family members you live with been unable to get any of the following when it was really needed? Check all that apply:?None.? * ROS:?General/Constitutional:?Patient denies?fatigue , headache.?Change in appetite?denies.?Chills?denies.?Fever?denies.?Ophthalmologic:?Blurred vision?denies.?Discharge?denies.?Pain?denies.?ENT:?Patient denies?decreased sense of smell , any loss of taste , sore throat.?Decreased hearing?denies.?Sore throat?denies.?Swollen glands?denies.?Endocrine:?Cold intolerance?denies.?Excessive thirst?denies.?Heat intolerance?denies.?Weight loss?denies.?Respiratory:?Cough?denies.?Shortness of breath at rest?denies.?Shortness of breath with exertion?denies.?Wheezing?denies.?Cardiovascular:?Chest pain at rest?denies.?Chest pain with exertion?denies.?Irregular heartbeat?denies.?Shortness of breath?denies.?Gastrointestinal:?Abdominal pain?denies.?Change in bowel habits?denies.?Diarrhea?denies.?Nausea?denies.?Rectal bleeding?denies.?Vomiting?denies .?Genitourinary:?Blood in urine?denies.?Difficulty urinating?denies.?Frequent urination?denies.?Musculoskeletal:?Patient denies?muscle aches.?Painful joints?denies.?Weakness?denies.?Peripheral Vascular:?Patient denies?red and blue toes.?Skin:?Dry skin?denies.?Itching?denies.?Denies?Mole(s),? changes in moles, new moles or any lesions of concern.?Denies?Photosensitivity.?Rash?denies.?Neurologic:?Dizziness?denies.?Fainting?denies.?Headache?denies.? * Medical History:? * Surgical History:? * Hospitalization/Major Diagno stic Procedure:? * Family History:?Father: marychuy martin 52 yrs.?Mother: alive 52 yrs.?1 sister(s) . .? Mother- Healthy father healthy, Denies mental health/substance abuse family history, No pertinent family medical history, Denies mental health/substance abuse family history. * Social History:?Tobacco Use:?Tobacco Use/Smoking?Patient is a?nonsmoker,?Additional Findings: Tobacco Non-User?Current non-smoker, currently using no form of tobacco.?Drugs/Alcohol:?Alcohol Screen?Did you have a drink containing alcohol in the past year??Yes,?How often did you have a drink containing alcohol in the past year??Monthly or less (1 point),?How many drinks did you have on a typical day when you were drinking in the past year??1 or 2 drinks (0 point),?How often did you have 6 or more drinks on one occasion in the past year??Never (0 point),?Points?1,?Interpretation?Negative.?Miscellaneous:?no Caffeine. no Children. Exercise: yes, yard work. Marital status: single. Occupation: weeks/months/years, works full-time. Pets: cats: dogs:1 dog. no Travel outside of the [place]. * Medications:?Not-Taking/PRND oxycycline Hyclate 100 MG Capsule 1 capsule Orally Once a dayClaritin-D 24 Hour 10-240 MG Tablet Extended Release 24 Hour 1 tablet as needed Orally Once a dayMedication List reviewed and reconciled with the patientNot-Taking/PRN Doxycycline Hyclate 100 MG Capsule 1 capsule Orally Once a dayNot-Taking/PRN Claritin-D 24 Hour 10-240 MG Tablet Extended Release 24 Hour 1 tablet as needed Orally Once a dayMedication List reviewed and reconciled with the patient * Allergies:?N.K.D.A.yes[Aller gies Verified] Objective: * Vitals:?Ht: 68, Wt:143, BMI: 21.74, BP:112/68 weight is up 7 pounds since 10-20-22. * ???Past Orders: ???Lab:Lipid Panel (Order Da te - 10/16/2023) (Collection Date - 10/16/2023) ? Value Reference Range ?Triglycerides 162 H <150 - mg/dL ?Cholesterol 155 <200 - m g/dL ?LDL Cholesterol Calculated 87 <100 - mg/dL ?HDL Cholesterol 36 L >40 - mg/dL ???Lab:Complete Blood Count Auto Diff (Order Date - 10/16/2023) (Collection Date - 10/16/2023) ? Value Reference Range ?White Blood Count 5.2 4. 8-10.8 - X10*3/uL ?Red Blood Count 5.28 4.60 -5.80 - X10*6/uL ?Hemoglobin 15.9 14.0-18.0 - g/dl ?Hematocrit 45.9 42.0-52.0 - % ?Mean Corpuscular Volume 86.9 80.0-98.0 - fL ?Mean Corpuscular Hemoglobin 30.1 27.0-33.0 - pg ?Mean Corpuscular HGB Conc 34.6 31.0-36.0 - g/dl ?Red Cell Distribution Width 12.3 11.0-16.0 - % ?Platelet Count 257 160-4 00 - X10*3/uL ?Mean Platelet Volume 11.2 9.4-12.4 - fL ?Neutrophils Percent Auto 58.3 45-73 - % ?Imm Gran Pct Auto 0.2 0. 0-0.4 - % ?Lymphocytes Percent Auto 29.2 20-40 - % ?Monocytes Percent Auto 9.0 2-11 - % ?Eosinophils Percent Auto 2.7 0-4 - % ?Basophils Percent Auto 0.6 0-2 - % ?NRBC Pct Auto 0.0 0.0-0. 2 - /100WBC ?Neutrophils Absolute Auto 3.1 2.0-8.3 - x10*3/uL ?Imm Gran Abs Auto 0.01 0. 00-0.03 - X10*3/uL ?Lymphocytes Absolute Auto 1.5 1.2-4.9 - X10*3/uL ?Monocytes Absolute Auto 0.5 0.1-1.2 - X10*3/uL ?Eosinophils Absolute Auto 0.1 0.0-0.4 - X10*3/uL ?Basophils Absolute Auto 0.0 0.0-0.2 - X10*3/uL ?NRBC Abs Auto 0.000 0.0-0. 012 - X10*3/uL ???Lab:Comprehensive [place]. P desi Fast (Order Date - 10/16/2023) (Collection Date - 10/16/2023) ? Value Reference Range ?Sodium 140 135-145 - mmo l/L ?Bilirubin Total 0.6 0.0- 1.0 - mg/dL ?Aspartate Amino Transferase 23 5-37 - U/L ?Alanine Aminotransferase 28 0-40 - U/L ?Total Protein 6.9 6.5-8. 0 - g/dL ?Albumin Level 4.2 3.5-5. 0 - g/dL ?Alkaline Phosphatase 65 39-117 - U/L ?Potassium 4.0 3.3-5.1 - mmol/L ?Chloride 102 96-108 - mm ol/L ?Carbon Dioxide 27 22-29 - mmol/L ?Anion Gap 15 12-20 - ?Blood Urea Nitrogen 9 9-16 - mg/dL ?Creatinine 0.86 0.5-1.4 - mg/dL ?Estimated Glomerular Filt Rate > 60 - ?Glucose Fasting 90 60-9 9 - mg/dL ?Calcium 9.4 8.4-10.2 - m g/dL ???Lab:UA ClnCatch+Micro w/r flx Cult (Order Date - 10/16/2023) (Collection Date - 10/16/2023) ? Value Reference Range ?Color Urine Yellow - ?Appearance Urine Clear - ?PH 6.5 5.0-9.0 - ?Glucose Urine UA Negative Neg ative - mg/dL ?Urine Blood Negative Negative - ?Specific [place] - Urine <= 1.005 1.005-1.025 - ?Urine Protein Negative Neg-Tr jewel - mg/dL ?Urine Ketones Negative Negati ve - mg/dL ?Nitrite Urine Negative Negati ve - ?Leukocyte Esterase Urine Negative Negative - ?RBC Urine 0-2 0-2 - /HPF ?WBC Urine 0-5 0-5 - /HPF ?Squamous Epithelial Cell Urine 0-2 0-2 - /HPF ?Bacteria Urine None Seen None Seen - ?Hyaline Casts Urine 0-2 0-2 - /LPF * Examination: ???General Examination: ?GENERAL APPEARANCE:?well developed, well nourished, in no acute distress.?HEAD:?normocephalic, atraumatic.?EYES:?pupils equal, round, reactive to light and accommodation, sclera non-icteric.?EARS:?normal.?ORAL CAVITY:?mucosa moist.?THROAT:?clear.?NECK/THYROID:?neck supple, full range of motion, no cervical lymphadenopathy, no bruits.?SKIN:?warm and dry, no suspicious lesions has a mole on rt axilla that is raised and irregular surface but smooth borders. appears benign.?HEART:?regular rate and rhythm, S1, S2 normal, no murmurs.?LUNGS:?clear to auscultation bilaterally.?ABDOMEN:?soft, nontender, nondistended, bowel sounds present, normal, no organomegaly , no masses palpable.?RECTAL EXAM:?normal tone, no external hemorrhoids, no masses palpable, prostate normal, stool guaiac negative.?MALE GENITOURINARY:?not examined.?EXTREMITIES:?no clubbing, cyanosis, or edema.?NEUROLOGIC:?nonfocal, motor strength normal upper and lower extremities, sensory exam intact.? Assessment: * Assessment: 1.?Annual physical exam - Z0 0.00 (Primary)?2.?Skin lesion - L98.9?3.?Dysfunction of both eustachian tubes - H69.93?4.?Bleeding nose - R04.0? Plan: * Treatment: 2.?Skin lesion? Notes: HIEU WANTED THE ADDRESS AND NUMBER FOR [facility] WHERE A FAMILY MEMBER GOES. ALL INFO GIVEN.?? 3.?Dysfunction of both eusta chian tubes? Notes: try flonase.?? 4.?Bleeding nose? Notes: refer to ent/ WILL REFER TO ENT IN [place], [place] . THEY HAVE THEIR OWN REFERRAL SHEET THAT I WILL COMPLETE AND FAX TO THEM.? Referral To:Vishal Diaz??Otolaryngology ?Reason:BLEEDING NOSE * Procedure Codes:? * Follow Up:?1 Year * * Sign off status: Completed true * Provider:?Carlos West MD Date:?0 10/23/2023 Generated for Ama bloom/Acosta/eTransmitting on:?10/15/2024 10:37 AM EDT History and Physical Notes * HPI (History of Present Illness) Category Sub-Category Detail Notes Category Not es Depression Screening PHQ-9 Little inte rest or pleasure in doing things: Not at all patient is a 27 yo male here for annual visit with review of recent labs and follow up of chronic issues, getting bloody nose on on rt side that occurs frequently. went to ent and they said that he needed to correct a deviated septum. Feeling down, depressed, or hopeless: No t at all Trouble falling or staying asleep, or sl eeping too much: Not at all Feeling tired or having little energy: N ot at all Poor appetite or overeating: Not at all Feeling bad about yourself o r that you are a failure, or have let yourself or your family down: Not at all Trouble concentrating on thi ngs, such as reading the newspaper or watching television: Not at all Moving or speaking so slowly that other people could have noticed; or the opposite, being so fidgety or restless that you have been moving around a lot more than usual: Not at all Thoughts that you would be b thiago off or of hurting yourself in some way: Not at all Total Score: 0 Interpretation and Intervention Depression Payam zazueta Findings: Negative Follow-Up for Depression: : review of PH Q-9 found negative result, no follow-up needed SDOH Questions SDOH Questions In the past year have you been worried about losing housing?: No In the past year have you or any family members you live with been unable to get any of the following when it was really needed? Check all that apply:: None Communication Needs Communication Needs Does the patient have a hearing impairment: No Does the patient have a vision impairmen t?: No Does the patient have a cognition impair ment?: No Examination Category Sub-Category Detail Notes Category Not es General Examination GENERAL APPEARANCE: well dev eloped, well nourished, in no acute distress HEAD: normocephalic, atrau matic EYES: pupils equal, round, reactive to light and accommodation, sclera non-icteric EARS: normal THROAT: clear NECK/THYROID: neck supple, full ra nge of motion, no cervical lymphadenopathy, no bruits HEART: regular rate and rhy thm, S1, S2 normal, no murmurs LUNGS: clear to auscultatio n bilaterally ABDOMEN: soft, nontender, non distended, bowel sounds present, normal, no organomegaly , no masses palpable NEUROLOGIC: nonfocal, motor stre ngth normal upper and lower extremities, sensory exam intact SKIN: warm and dry, no pretty picious lesions has a mole on rt axilla that is raised and irregular surface but smooth borders. appears benign EXTREMITIES: no clubbing, cyanosi s, or edema MALE GENITOURINARY: not examined RECTAL EXAM: normal tone, no exte rnal hemorrhoids, no masses palpable, prostate normal, stool guaiac negative ORAL CAVITY: mucosa moist Consultation Request Notes Referral Date Referring Provider Referred Provider Not es 01/15/2024 Carlos West, Vishal SHERIDAN NOSE
--- OUTSIDE RECORDS SUMMARY | 2024-10-15 10:38 | XMS_ITS ---
Author Organization Carlos West MD Address [address] [place], [place] [id number] Care Team Providers Care Terminal Manager Name Role Phone Carlos West Primary Care Provider REASON FOR VISIT FASTING LABS Problems No Known Problems Encounters Encounter Location Date Provider Diagnosis Carlos West MD [address] [place] [phone] 10/15/2024 Carlos West Blood tests for routine general physical examination Z00.00 Assessments Encounter Date Diagnosis (ICD Code) Assessment Notes Treatment Notes Treatment Clinical Notes Section Notes 10/15/2024 Blood tests for routine general physical examination (ICD-10 - Z00.00) Plan Of Treatment Pending Test Test Name Order Date Complete Blood Count Auto Diff 5 Comprehensive [place]. Panel Fast 5 Lipid Panel 10/15/2024 UA ClnCatch+Micro w/rflx Cult 10/15/2024 Next Appt Details Provider Name:Carlos Johnson ier, 10/29/2024 02:30:00 PM, [address], [address], [place], [place], [id number], Progress Notes * Gregory SEWELL MDOB:1995 (28 yo M)Acc No.[id number]:10/15/2024 Progress Note Patient:?Gregory SEWELL Provider:?Carlos West MD :1995???Age:28 Y???Sex:Male Sven e:10/15/2024 Address: [address] [place] , [id number] Subjective: * Chief Complaints: * ???1. FASTING LABS. * Medical History:? Objective: * Vitals:? Assessment: * Assessment: 1.?Blood tests for routine g eneral physical examination - Z00.00 (Primary)??? Plan: * Treatment: * Procedure Codes:?29007 VENIP UNCT, ROUTINE* * * The named appointment provid er may or may not be the originator of this progress note, and it is not deemed complete until electronically signed by the appointment provider. Sign off status: Pending * Provider:?Carlos West MD Date:?0 10/15/2024 Generated for Ama bloom/Acosta/Humbertoitting on:?10/15/2024 10:38 AM EDT
--- OUTSIDE RECORDS SUMMARY | 2024-10-15 10:38 | XMS_ITS | Encounter Summary ---
Author Organization [facility] Address [address] [place] [address] Phone Care Team Providers Care Geologic Technician Name Role Phone Alla Menezes MD Primary Care Provider [phone] Encounter Details Date Type Department Care Team (Late st Contact Info) Description 01/09/2014 Documentation [facility] [place] [address] [place] [address] Family Medicine, Physician [address] [place], [place] [phone] Social History Tobacco Use Types Packs/Day Years [...] on filedocumented in this encounter Care Teams Geologic Technician Relationship Specialty Start Date End Date Alla Menezes MD [address] [place] [address] RAIN[place] Erwin [id number] PCP - General 01/13/17 06/12/17 documented as of this encounter
--- OUTSIDE RECORDS SUMMARY | 2024-10-15 10:38 | XMS_ITS | Encounter Summary ---
Author Organization [facility] Address [address] [place] [address] Phone Care Team Providers Care Utility Mechanic Name Role Phone Alla Menezes MD Primary Care Provider [phone] Encounter Details Date Type Department Care Team (Late st Contact Info) Description 01/10/2014 Documentation [facility] [place] [address] [place] [address] Family Medicine, Physician [address] [place], [place] [phone] Social History Tobacco Use Types Packs/Day Years [...] on filedocumented in this encounter Care Teams Utility Mechanic Relationship Specialty Start Date End Date Alla Menezes MD [address] [place] [address] [place] [id number] PCP - General 01/13/17 06/12/17 documented as of this encounter
--- OUTSIDE RECORDS SUMMARY | 2024-10-15 10:38 | XMS_ITS ---
Author Organization Carlos West MD Address [address] [place] [phone] Care Team Providers Care Bacteriologist Industrial Name Role Phone Carlos West Primary Care Provider [phone] REASON FOR VISIT Medication Medications Medication SIG (Take, Route, Fr equency, Duration) Notes Start Date End Date Status valACYclovir HCl 500 MG 1 tablet Orally Once a day for 90 days 07/02/2024 Active Problems No Known Problems Encounters Encounter Location Date Provider Diagnosis Carlos West MD [facility] [address] [place] [phone] 07/02/2024 Carlos West Plan Of Treatment Medication Medication Name Sig Start Date Stop Date Notes valACYclovir HCl 500 MG 1 tablet Orally Once a day for 90 days 07/02/2024 Next Appt Details Provider Name:Carlos john, 10/29/2024 02:30:00 PM, [address] [place] [address] Drive, [address], [place], [place], [phone], Progress Notes * Gregory SEWELL MDOB:1995 (28 yo M)Acc No.[id number]:07/02/2024 Patient:?Gregory SEWELL :1995???Age:28 Y???Sex:Male Address:[address] [place], [address] * Refills? Start valACYclovir HCl Tablet, 500 MG, Orally, 90 Tablet, 1 tablet, Once a day, 90 days, Refills=3 * true * Date:? Generated for Ama bloom/Acosta/Humbertoitting on:?10/15/2024 10:37 AM EDT
--- OUTSIDE RECORDS SUMMARY | 2024-10-15 10:38 | XMS_ITS | Encounter Summary ---
Author Organization [facility] Address [address] [place] [phone] Phone Care Team Providers Care Press Operator [employer] Name Role Phone Alla Menezes MD Primary Care Provider [phone] Encounter Details Date Type Department Care Team (Late st Contact Info) Description 01/10/2014 Documentation [facility] [place] Family Medicine [address] [place] [address] Family Medicine, Physician [address] [place], [place] [phone] Social History Tobacco Use Types Packs/Day Years [...] on filedocumented in this encounter Care Teams Press Operator [employer] Relationship Specialty Start Date End Date Alla Menezes MD [address] [place] [address] RA[place] [address] PCP - General 01/13/17 06/12/17 documented as of this encounter
[2024-10-15 11:03] LABS: Appearance Urine Clear; Color Urine Yellow; Glucose Urine UA Negative (Negative); Leukocyte Esterase Urine Negative (Negative); Nitrite Urine Negative (Negative); PH 5.5 (5.0-9.0); Specific Gravity - Urine 1.025 (1.005-1.025); Urine Blood Negative (Negative); Urine Ketones Negative (Negative); Urine Protein Negative (Neg-Trace)
[2024-10-15 11:06] LABS: Basophils Percent Auto 0.7 % (0-2); Eosinophils Absolute Auto 0.1 X10*3/uL (0.0-0.4); Eosinophils Percent Auto 2.2 % (0-4); Hematocrit 47.6 % (42.0-52.0); Hemoglobin 16.6 g/dl (14.0-18.0); Imm Gran Abs Auto 0.01 X10*3/uL (0.00-0.03); Imm Gran Pct Auto 0.2 % (0.0-0.4); Lymphocytes Absolute Auto 1.5 X10*3/uL (1.2-4.9); Lymphocytes Percent Auto 27.1 % (20-40); Mean Corpuscular HGB Conc 34.9 g/dl (31.0-36.0); Mean Corpuscular Hemoglobin 31.1 pg (27.0-33.0); Mean Corpuscular Volume 89.3 fL (80.0-98.0); Monocytes Absolute Auto 0.5 X10*3/uL (0.1-1.2); Monocytes Percent Auto 9.5 % (2-11); Neutrophils Absolute Auto 3.3 x10*3/uL (2.0-8.3); Neutrophils Percent Auto 60.3 % (45-73); Platelet Count 237 X10*3/uL (160-400); Red Blood Count 5.33 X10*6/uL (4.60-5.80); Red Cell Distribution Width 12.6 % (11.0-16.0); White Blood Count 5.5 X10*3/uL (4.8-10.8)
[2024-10-15 11:10] LABS: Bacteria Urine None Seen (None Seen); Hyaline Casts Urine 0-2 /LPF (0-2); RBC Urine 0-2 /HPF (0-2); Squamous Epithelial Cell Urine 0-2 /HPF (0-2); WBC Urine 0-5 /HPF (0-5)
[2024-10-15 11:55] LABS: Alanine Aminotransferase 59 U/L (0-40); Albumin Level 4.3 g/dL (3.5-5.0); Anion Gap 13 (12-20); Aspartate Amino Transferase 38 U/L (5-37); Bilirubin Total 0.6 mg/dL (0.0-1.0); Blood Urea Nitrogen 15 mg/dL (9-16); Calcium 9.2 mg/dL (8.4-10.2); Carbon Dioxide 27 mmol/L (22-29); Chloride 103 mmol/L (96-108); Cholesterol 181 mg/dL (<200); Estimated Glomerular Filt Rate > 60; Glucose Fasting 83 mg/dL (60-99); HDL Cholesterol 42 mg/dL (>40); LDL Cholesterol Calculated 100 mg/dL (<100); Potassium 3.8 mmol/L (3.3-5.1); Sodium 139 mmol/L (135-145); Total Protein 6.8 g/dL (6.5-8.0); Triglycerides 199 mg/dL (<150)
[2024-10-15 12:39] LABS: Alkaline Phosphatase 62 U/L (39-117)
== END 2024-10-15 09:51 | disposition home or self-care (01) ==
LOC: HO.LNP 09:50
PROVIDERS: Visit Provider Internal Medicine
DX: Z00.00 Encounter for general adult medical examination without abnormal findings (principal); Z13.6 Encounter for screening for cardiovascular disorders
CPT/HCPCS: 80053; 80061; 81001; 85025

== ENCOUNTER 2024-12-10 10:17 | Outpatient (REF) | payer BC, SELFPAY ==
--- OUTSIDE RECORDS SUMMARY | 2024-10-29 10:30 | XMS_ITS ---
Author Organization Carlos West MD Address [address] [place], [place] [phone] Care Team Providers Care Stitcher Around Name Role Phone Carlos West Primary Care [...] Location Date Provider Diagnosis Carlos West MD [address] [place] [address] [address] [place], [place] [phone] 10/29/2024 Carlos West Annual physical exam Z00.00 [...] M26.609) he is going to go to [facility] 10/29/2024 Elevated LFTs (ICD-10 - R79.89) will continue to monitor, pending labs 10/29/2024 Depression screening (ICD-10 - Z13.31) negative screen Plan Of Treatment Treatment Notes Assessment Notes Annual physical exam labs reviewed and d iscussed with patient Reflux esophagitis pending diagnostic t esting TMJ (temporomandibular joint syndrome) h e is going to go to [facility] Elevated LFTs will continue to mon itor, pending labs Depression screening negative screen Pending Test Test Name Order Date XR GI SERIES 10/29/2024 Liver Panel 10/29/2024 Next Appt Details Follow Up: 6 Weeks, Reason: Provider Name:Carlos john, 12/17/2024 01:45:00 PM, [address] [place] [address], [address], [place], [place], [phone], Provider Name:Carlos john, 10/28/2025 07:15:00 AM, [address] [place] [address], [address], [place], [place], [phone], Provider Name:Carlos john, 11/04/2025 02:30:00 PM, [address], [address], [place], [place], [phone], Progress Notes * Gregory SEWELL MDOB:1995 (28 yo M)Acc No.[id number]:10/29/2024 Progress Notes Patient: Gregory SEGUNDO Provider: William West MD :1995 A ge:28 Y S ex:Male Date:10/29/2024 Address:[address] [place], [place] [address] , [facility] Subjective: * Chief Complaints: * A NNUAL [...] Travel outside of the [place]: yes, [facility]. * Medications: T akingvalACYclovir HCl 500 [...] Wt-k.68. weight is up 4 pounds since 10-23-23. * P ast Orders: L ab:Complete Blood [...] mg/dL Urine Blood Negative Negative - Specific [place] - Urine 1.025 1.005-1.025 - Urine Protein [...] Notes: he is going to go to [facility] 4. E levated LFTs L AB: Liver Panel (Ordered for 12/10/2024) Notes: will continue to monitor, pending labs 5. D epression screening Notes: negative screen * Procedure Codes: * Follow Up: 6 Weeks * * Sign off status: Completed true * Provider: William West MD Date: 0 10/29/2024 Generated for Ama lboom/Acosta/Humbertoitting on: 0 12/10/2024 11:07 AM EDT History and Physical Notes * [...] Total Score: 0 Interpretation and Intervention Depression Scree carlita Findings: Negative Follow-Up for Depression: : [...]
[2024-12-10 11:03] LABS: Alanine Aminotransferase 43 U/L (0-40); Albumin Level 4.5 g/dL (3.5-5.0); Alkaline Phosphatase 59 U/L (39-117); Aspartate Amino Transferase 31 U/L (5-37); Total Protein 6.7 g/dL (6.5-8.0)
--- OUTSIDE RECORDS SUMMARY | 2024-12-10 11:08 | XMS_ITS | Data Portability ---
Author Organization [place] - [facility], Allergy Address [address] [facility] [address] [place] [address] Care Team Providers Care Boiling House Oiler Name Role Phone JULIAN JEFFERSON Primary Care Provider [phone] Assessment Encounter Date Assessment Date Assessment LastModified by Organization Details LastModified Time 08/06/2024 08/06/2024 1. Nasal obstruction 2. Nasal valve collapse 3. Nasal septal deviation 4. Inferior turbinate hypertrophy 5. Sinus opacification Given these findings, we discussed the option of septorhinoplasty with inferior turbinate reduction. History and physical exam confirm the presence of functional nasal obstruction secondary to nasal valve collapse, septal deviation. He may also benefit from opening his maxillary/ethmoid sinuses. Conservative medical management has failed, and septoplasty alone will not alleviate the obstruction therefore I would proceed with septorhinoplasty with inferior turbinate reduction with possible auricular cartilage grafting and costal cartilage grafting. The nasal obstruction is significant and impacts daily living; there it is medically warranted. I recommend he start with breathe rite strips and following up in several months to reevvaluate for surgery 1. Jaw pain 2. Otalgia Differential diagnosis: temporomandibular joint dysfunction, migraine/headache syndrome. PLAN: - TMJ lifestyle modifications- nightguard, motrin, warm compresses, jaw exercises, physical therapy Not available 08/06/2024 12:54:27 10/10/2024 10/10/2024 1. Nasal obstruction 2. Nasal valve collapse 3. Nasal septal deviation 4. Inferior turbinate hypertrophy 5. Chronic sinusitis Given these findings, we discussed the option of septorhinoplasty with inferior turbinate reduction. History and physical exam confirm the presence of functional nasal obstruction secondary to nasal valve collapse, septal deviation. He may also benefit from opening his maxillary/ethmoid sinuses. Conservative medical management has failed, and septoplasty alone will not alleviate the obstruction therefore I would proceed with septorhinoplasty with inferior turbinate reduction with possible auricular cartilage grafting and costal cartilage grafting. The nasal obstruction is significant and impacts daily living; there it is medically warranted. We discussed the risks, benefits and alternatives of nasal surgery. The risks include, but are not limited to: bleeding, infection, columellar scar, failure to resolve symptoms, septal perforation, residual external nasal deformity, irregularities in the nasal contour, nasal skin and or teeth numbness and need for further surgery. If costal cartilage is required, this would also incur a risk of pneumothorax. The patient understands the risks and benefits of the procedure and would like to proceed. We discussed the risks and benefits of sinus surgery including but not limited to pain, bleeding, infection, need for further surgery, septal perforation, persistent nasal obstruction, injury to the globe or skullbase, paresthesia, change in sense of smell. The patient would like to proceed. Photo Consent: For clinical purposes, photographs were taken of the patient. Written consent was obtained indicating all photos are to be stored securely, and used and managed by Dr. Donald. Rhinoplasty + Turbinate reduction 81621, 93059 Sinus surgery: 40106, 79825, 82118 Not available 10/10/2024 10:58:50 Plan of Treatment Reminders Order Date Submit Date Provider Last Modified By Organization Details Last Modified Time Details Appointments SURGERY 180 2024 07:30A M CHARU DONALD MD Not available Not available Not available Post Op 2024 03:15P M JORGE BALDWIN PA-C Not available Not available Not available Lab None recorded. Referral None recorded. Procedures None recorded. Surgeries rhinoplas ty (SURG) 2024 025 [email or web address] Not available 10/10/2024 11:12:06 endoscopy , nasal and sinus (SURG) 2024 025 [email or web address] Not available 10/10/2024 11:12:[address], maxillofa cial, w/o contrast [address] [facility], [address] [place], [address], 07/05/2024 09:20:41 Medication Orders None recorded. Patient TargetsNo targets recorded. Patient InstructionsNo instructions recorded. Reason for Referral None Reported. Results Created Date Observation Date Name Description Value Unit Range Abnormal Flag Note LastModifiedBy Organization Detail LastModifiedTime 06/28/19 audio gram No observ ation record ed. BARCODE Not Available 2024 11:17:47 08/12/19 25 08/06/2024 CT, sinus es, w/o contr ast No observ ation record ed. [email or web address] [facility] [address] [address], [place], [address], 08/14/2024 10:26:45 08/12/19 25 08/06/2024 CT, sinus es, w/o contr ast No observ ation record ed. [email or web address] [address], [address], 08/12/2024 13:08:24 10/25/[address], sinus es, w/o contr ast No observ ation record ed. [email or web address] Not Available 14:14:36 Result Notes None recorded. Problems Name Problem SNOMED Code Status Onset Date Resolution Date Notes Provider Name and Address Organization Details Recorded Time Bleeding from nose 057301775 Active 2018 Epistaxis ; Note: Date Diagnosed : 07/20/2018 1:46 PM (R04.0) Not Available [facility] 4 02:34:58 Deviated nasal septum 305672879 Active 2018 Deviated nasal septum; Note: Date Diagnosed : 07/20/2018 1:46 PM (J34.2) CHARU DONALD MD [address] [address], [place], [address] , [facility] - [facility] 5 09:14:40 Nasal congestion 85882062 Active 2018 Nasal congestio n; Note: Date Diagnosed : 07/20/2018 1:46 PM (R09.81) Not Available [facility] 4 02:34:50 Anterior epistaxis 171908439 Active 2024 PRINCESS SALAZAR MD [address], [place], [place], [address] , [place] - [facility] [place] 5 10:03:11 Abnormal auditory perception 93462304 Active 2024 PRINCESS SALAZAR MD [address], [place], [address] , [place] - [facility] 5 10:03:28 Abnormal auditory perception 95077963 Active 2024 PRINCESS SALAZAR MD [address], [place], [place], [address] , [place] - [facility] 5 10:03:34 Chronic sinusitis 84201263 Active 2024 PRINCESS SALAZAR MD [address], [place], [place], [address] , [place] - [facility] 5 10:04:50 Incompeten ce of nasal valve 628039053 Active 2024 CHARU DONALD MD [address], [place], [place], [address] , [place] - [facility] 5 12:53:10 Nasal sinus pressure sensation Active 2024 CHARU DONALD MD [address], [place], [place], [address] , [place] - [facility] 5 12:53:27 Nasal obstructio n 022662974 Active 2024 CHARU DONALD MD [address], [place], [place], [address] , [place] - [facility] 5 09:14:38 Temporoman dibular joint disorder 46194646 Active 2024 CHARU DONALD MD [address], [facility] [place], [address] , [facility] - [facility] 5 12:54:34 Chronic maxillary sinusitis 96838992 Active 2024 CHARU DONALD MD [address], [facility] [place], [address] , [facility] - [facility] 10:59:34 Problem Notes None recorded. Procedures Surgical History Date Name Laterality Status Provider Name and Address Organization Details Recorded Time JMSNasal/Sinus Endoscopy completed PRINCESS VALLE MD [address] [facility],[address] [address], [place], [address], [facility] 06/28/2024 10:02:54 Air & Speech Audio with Tymps - 79059, 23825 & 86100 completed GABBIE JANSEN [address] [facility],[address] [address], [place], [address], [facility] 06/28/2024 10:20:32 Imaging Results None recorded. Procedure Notes None recorded. Medical Equipment None Reported. Medications Name Sig Start Date Stop Date Status Note LastModified by Organization Details LastModified Time valacyclo vir 1 gram tablet TAKE 1 TABLET BY MOUTH EVERY 8 HOURS WITH MEAL(S) FOR 7 DAYS. 06/28 completed Not Available Not Available Not Available valacyclo vir 500 mg tablet TAKE 1 TABLET BY MOUTH EVERY DAY FOR 90 DAYS active Not Available Not Available No t Available ofloxacin 0.3 % ear drops INSTILL 10 DROPS INTO AFFECTED EAR(S) BY OTIC ROUTE ONCE DAILY X 10 DAYS. 06/28 completed Not Available Not Available Not Available Claritin- D 24 Hour 10 mg-240 mg tablet,ex tended release active Medicati on ID: [id number] B rand Name: Claritin -D 24 Hour Sen d Method: E-Prescr ibed Sub s Allowed: subs OK Medic ationGen ericName : Claritin -D 24 Hour Not Available Not Available Not Available Vitals Date Recorded Body height Body mass index (BMI) Body weight Provider Name and Address Organization Details Last Updated DateTime 06/28/2024 172.72 cm 21 kg/m2 92742.75 g Efren Saha [facility] 06/28/2024 09:33:34 Date Recorded Body height Body mass index (BMI) Body weight Provider Name and Address Organization Details Last Updated DateTime 08/06/2024 172.72 cm 21 kg/m2 67106.75 g Antione Mas [facility] 08/06/2024 11:22:44 Date Recorded Body height Body mass index (BMI) Body weight Provider Name and Address Organization Details Last Updated DateTime 10/10/2024 172.72 cm 21 kg/m2 27849.75 g Esthercynthia Dunbar [facility] 10/10/2024 08:50:16 Social History None recorded. Functional Status None recorded. Mental Status None recorded. Family History Nothing Reported. Medical History No medical history recorded. Past Encounters Encounter ID Performer Location Encounter Start Date Encounter Closed Date Diagnosis/Indication Diagnosis SNOMED-CT Code Diagnosis ICD10 Code Diagnosis Note [id number] PRINCESS SALAZAR MD [facility] [address] [address] 06/28/2024 09:02:42 06/28/2024 10:30:18 Anterior epistaxis 496950723 R04.0 Deviated nasal septum 12 3376906 J34.2 Nasal congestion 6093940 0 R09.81 Patient with sensation of sinus blockage and recurrent right-side d epistaxis for several years. No obvious bleeding source or mass noted. Suggest CT of sinus and evaluation with Dr. Donald for septoplast y. He does have significan tly deviated columella to the right and some mild nasal valve collapse on that side as well. Depending on the results of the CT scan, the septal deviation is likely the cause of his epistaxis and he may benefit from surgical interventi on. Abnormal a uditory perception 07401179 H93.292 Small amount of cerumen was removed from the left ear. No evidence of middle ear fluid. Left TMJ tender with crepitus. Audiometri c testing reviewed. Suggested 3 drops distilled vinegar in each ear twice weekly to prevent the buildup of cerumenRig ht Ear:Normal hearing with excellent speech discrimina tion.Type A tympanogra m.Left Ear:Normal hearing with excellent speech discrimina tion.Type A tympanogra m.TMJ precaution s discussed [id number] CHARU DONALD MD [facility] [address] [address] 08/06/2024 10:49:18 08/06/2024 12:16:32 Deviated nasal septum 469143755 J34.2 Incompeten ce of nasal valve 688707805 J34.89 Nasal sinu s pressure sensation 9432060305 J34.89 Nasal obstruction 694205 000 J34.89 Temporoman dibular joint disorder 75457271 M26.609 [id number] CHARU DONALD MD [facility] [address] [address] 10/10/2024 08:30:15 10/10/2024 12:13:32 Nasal obstruction 384173231 J34.89 Deviated nasal septum 12 9956131 J34.2 Incompeten ce of nasal valve 620480277 J34.89 Nasal sinu s pressure sensation 0817388718 J34.89 Chronic wy xillary sinusitis 44226391 J32.0 Health Concerns Section Related Observation LastModified by Organization Detai ls LastModified Time None Recorded Concern Status LastModified by Organization Details LastModified Time None Recorded Advance Directives Directive None Recorded Payers Insurance Date Sequence Insurance Name Policy Number Policy Iglesias Covered Member ID Iglesias Member ID Guarantor Name 10/23/2024 1 [facility] [id number] Gregory Melodie [id number] Gregory Melodie Notes Date Note Type Note Provider Name and Address Organization Details Recorded Time 5 text/html Sensation of fullness left ear, jaw popping left side and recurrent epistaxis right sideUnclear if any hearing lossHx of DNS. Epistaxis frequently but feels Claritin D preventsHx of sinus pressure PRINCESS VALLE MD [address] [place] [address], [address], [facility] - [facility] 06/28/2024 10:28:48 5 text/html On a scale of 1 to 10, with 1 being the worst and 10 being the best, nasal breathing on each side is scored as follows:Right: 910Left: 3/10Associated symptoms: Nasal congestion, nasal pressure, nasal obstruction, left facial pressure, TMJ pressure on the leftMedications trialed: claritin D, flonase (no benefit)History of seasonal allergies: environmentalHistory of prior nasal trauma: noHistory of recurrent, acute, or chronic sinusitis: noHistory of prior nasal surgery: noPrior intranasal drug use: no No smoking vaping or marijuana useSinus imaging was obtained and reviewed independently today. This shows sinus fluid levels in bilateral maxillary sinus, with high uncinate bones bilaterally obstructing the osteomeatal complex, some ethmoid opacification. Right septal spur. Otherwise patent paranasal sinuses. CHARU DONALD MD [address] [place] [address], [address], [place] - [facility] 08/06/2024 12:54:56 text/html On a scale of 1 to 10, with 1 being the worst and 10 being the best, nasal breathing on each side is scored as follows:Right: 10Left: 3/10Associated symptoms: Nasal congestion, nasal pressure, nasal obstruction, left facial pressure, TMJ pressure on the leftMedications trialed: claritin D, flonase (no benefit)History of seasonal allergies: environmentalHistory of prior nasal trauma: noHistory of recurrent, acute, or chronic sinusitis: noHistory of prior nasal surgery: noPrior intranasal drug use: noNo smoking vaping or marijuana useSinus imaging was obtained and reviewed independently today. This shows sinus fluid levels in bilateral maxillary sinus, with high uncinate bones bilaterally obstructing the osteomeatal complex, some ethmoid opacification. Right septal spur. Otherwise patent paranasal sinuses. CHARU DONALD MD [address] [place] [address],[address], [address], [place] - [facility] 10/10/2024 11:00:15
--- OUTSIDE RECORDS SUMMARY | 2024-12-10 11:08 | XMS_ITS | Encounter Summary ---
Author Organization [facility] Address [address] [place] [address] Phone Care Team Providers Care Shoe Cementer Name Role Phone Alla Menezes MD Primary Care Provider [phone] Encounter Details Date Type Department Care Team (Late st Contact Info) Description 08/16/2012 Documentation [facility] [address] [place] [address] Family Medicine, Physician [address] [place], [place] [phone] Social History Tobacco Use Types Packs/Day Years [...] on filedocumented in this encounter Care Teams Shoe Cementer Relationship Specialty Start Date End Date Alla Menezes MD [address] [place] [address] [place] [address] PCP - General 01/13/17 06/12/17 documented as of this encounter
== END 2024-12-10 10:18 | disposition home or self-care (01) ==
LOC: HO.LNP 10:17
PROVIDERS: Visit Provider Internal Medicine
DX: R79.89 Other specified abnormal findings of blood chemistry (principal)
CPT/HCPCS: 80076

== ENCOUNTER 2024-12-23 15:41 | Outpatient (REF) | payer BC, SELFPAY ==
--- OUTSIDE RECORDS SUMMARY | 2024-10-29 10:30 | XMS_ITS ---
Author Organization Carlos West MD Address [address] [place], [place] [id number] Care Team Providers Care Ink Jet Operator Name Role Phone Carlos West Primary Care Provider Allergies No Known Allergies REASON FOR VISIT ANNUAL EXAM/ must see labs liver Medications Medication SIG (Take, Route, Frequency, Duration) Notes Start Date End Date Status valACYclovir HCl 500 MG 1 tablet Orally Once a day for 90 days 07/02/2024 Active Claritin-D 24 Hour 10-240 MG 1 tablet [...] (0 point) Points 1 Interpretation Negative Problems Problem Type SNOMED Code ICD Code Onset Dates Problem Status W/U Status Risk Notes Problem Reflux esophagitis (K21.00) Active confirmed Vital Signs Blood pressure systolic 118 mm Hg 10/30/19 25 Blood pressure diastolic 66 mm Hg 05/27/2 025 Height 68 in 10/29/2024 Weight 147 lbs 10/29/2024 BMI 22.35 kg/m2 10/29/2024 weight is up 4 pounds since 10-23-23 Encounters Encounter Location Date Provider Diagnosis Carlos West MD [address] [place] [address] Drive [address] [place], [place] [phone] 10/29/2024 Carlos West Annual physical exam Z00.00 ; Reflux esophagitis K21.00 ; TMJ (temporomandibular joint syndrome) M26.609 ; Elevated LFTs R79.89 and Depression screening Z13.31 Assessments Encounter Date Diagnosis (ICD Code) Assessment Notes Treatment Notes Treatment Clinical Notes Section Notes 10/29/2024 Annual physical exam (ICD-10 - Z00.00) labs reviewed and discussed with patient 10/29/2024 Reflux esophagitis (ICD-10 - K21.00) pending diagnostic testing 10/29/2024 TMJ (temporomandibul ar joint syndrome) (ICD-10 - M26.609) he is going to go to [facility] 10/29/2024 Elevated LFTs (ICD-10 - R79.89) will continue to monitor, pending labs 10/29/2024 Depression screening (ICD-10 - Z13.31) negative screen Plan Of Treatment Treatment Notes Assessment Notes Annual physical exam labs reviewed and d iscussed with patient Reflux esophagitis pending diagnostic t esting TMJ (temporomandibular joint syndrome) h e is going to go to [facility] Elevated LFTs will continue to mon itor, pending labs Depression screening negative screen Pending Test Test Name Order Date XR GI SERIES 10/29/2024 Next Appt Details Follow Up: 6 Weeks, Reason: Provider Name:Carlos john, 10/28/2025 07:15:00 AM, [address] [place] [address], Suite [facility], [place], [place], [phone], Provider Name:Carlos john, 11/04/2025 02:30:00 PM, [address] [place] [address], Suite [facility], [place], [place], [phone], Progress Notes * Gregory SEWELL MDOB:1995 (28 yo M)Acc No.[id number]:10/29/2024 Progress Notes Patient: Gregory SEGUNDO Provider: William West MD :1995 A ge:28 Y S ex:Male Date:10/29/2024 Address: [place], [id number] Subjective: * Chief Complaints: * A NNUAL EXAM/ must see labs liver * HPI: D epression Screening: PHQ-9 L ittle interest or pleasure in doing things N ot at all, F eeling down, depressed, or hopeless N ot at all, T rouble falling or staying asleep, or sleeping too much N ot at all, F eeling tired or having little energy N ot at all, P oor appetite or overeating N ot at all, F eeling bad about yourself or that you are a failure, or have let yourself or your family down N ot at all, T rouble concentrating on things, such as reading the newspaper or watching television N ot at all, M oving or speaking so slowly that other people could have noticed; or the opposite, being so fidgety or restless that you have been moving around a lot more than usual N ot at all, T houghts that you would be better off or of hurting yourself in some way N ot at all, T otal Score 0 . I nterpretation and Intervention D epression Screening Findings N egative, F ollow-Up for Depression : review of PHQ-9 found negative result, no follow-up needed. has some tmj and is getting deviated septum done in may/ gets pains in chest 30 mins or an hour. gets better with pepcid/ sometimes throws up and feels like he has to throw up for the day. sometimes has trouble sitting straight up. C ommunication Needs: Communication Needs D oes the patient have a hearing impairment N o, D oes the patient have a vision impairment? N o, D oes the patient have a cognition impairment? N o. S IVONNE Questions: SDOH Questions I n the past year have you been worried about losing housing? N o, I n the past year have you or any family members you live with been unable to get any of the following when it was really needed? Check all that apply: N one. S ymptom(s): patient is a 28 yo male here for annual visit with review of recent labs. * ROS: G eneral/Constitutional: Change in appetite d enies. C hills d enies. F ever d enies. O phthalmologic: Blurred vision d enies. D ischarge d enies. P ain d enies. E NT: Decreased hearing d enies. S ore throat d enies.?Swollen glands d enies. E ndocrine: Cold intolerance d enies. E xcessive thirst d enies. H eat intolerance d enies. W eight loss d enies. R espiratory: Cough d enies. S hortness of breath at rest d enies. S hortness of breath with exertion d enies. W heezing d enies. C ardiovascular: Chest pain at rest d enies. C hest pain with exertion?denies. I rregular heartbeat d enies. S hortness of breath d enies. ? G astrointestinal: Abdominal pain d enies. C hange in bowel habits d enies. D iarrhea d enies. N ausea d enies. R ectal bleeding d enies. V omiting d enies . G enitourinary: Blood in urine d enies. D ifficulty urinating d enies. F requent urination d enies. M usculoskeletal: Painful joints d enies. W eakness d enies. ? S kin: Dry skin d enies. I tching d enies. D enies?Mole(s), changes in moles, new moles or any lesions of concern. D enies P hotosensitivity. R joss d enies. N eurologic: Dizziness d enies. F ainting d enies. H eadache?denies. * Medical History: * Surgical History: * Hospitalization/Major Diagno stic Procedure: * Family History: F ather: alive 53 yrs. M other: alive 53 yrs. 1 sister(s) . . Mother- Healthy father healthy, Denies mental health/substance abuse family history, No pertinent family medical history, Denies mental health/substance abuse family history. * Social History: T obacco Use: T obacco Use/Smoking P atient is a n onsmoker, A dditional Findings: Tobacco Non-User C urrent non-smoker, currently using no form of tobacco. D rugs/Alcohol: A lcohol Screen D id you have a drink containing alcohol in the past year? Y es, H ow often did you have a drink containing alcohol in the past year? M onthly or less (1 point), H ow many drinks did you have on a typical day when you were drinking in the past year? 1 or 2 drinks (0 point), H ow often did you have 6 or more drinks on one occasion in the past year? N ever (0 point), P oints 1 , I nterpretation N egative. M iscellaneous: C affeine: no. Children: no. Exercise: yes, yard work Golf and Volleyball. Marital status: single. Occupation: weeks/months/years, works full-time. Pets: cats: dogs:1 dog. Travel outside of the [place]: yes, [facility]. * Medications: T akingvalACYclovir HCl 500 MG Tablet 1 tablet Orally Once a day Taking valACYclovir HCl 500 MG Tablet 1 tablet Orally Once a day Not-Taking/PRNDoxycycline Hyclate 100 MG Capsule 1 capsule Orally Once a day Claritin-D 24 Hour 10-240 MG Tablet Extended Release 24 Hour 1 tablet as needed Orally Once a day Medication List reviewed and reconciled with the patientNot-Taking/PRN Doxycycline Hyclate 100 MG Capsule 1 capsule Orally Once a day Not-Taking/PRN Claritin-D 24 Hour 10-240 MG Tablet Extended Release 24 Hour 1 tablet as needed Orally Once a day Medication List reviewed and reconciled with the patient * Allergies: N .K.D.A.yes[Allergies Verified] Objective: * Vitals: H t: 68, Wt: 147, BMI:22.35, BP:118/66, Wt-k.68. weight is up 4 pounds since 24. * P ast Orders: L ab:Complete Blood Count Auto Diff (Order Date - 10/15/2024) (Collection Date & Time - 10/15/2024 07:15 AM) Value Reference Range White Blood Count 5.5 4.8-10.8 - X10*3/uL Red Blood Count 5.33 4.60-5.80 - X10*6/uL Hemoglobin 16.6 14.0-18.0 - g/dl Hematocrit 47.6 42.0-52.0 - % Mean Corpuscular Volume 89.3 80.0-98.0 - fL Mean Corpuscular Hemoglobin 31.1 27.0-33.0 - pg Mean Corpuscular HGB Conc 34.9 31.0-36.0 - g/ dl Red Cell Distribution Width 12.6 11.0-16.0 - % Platelet Count 237 160-400 - X10*3/uL Mean Platelet Volume 11.0 9.4-12.4 - fL Neutrophils Percent Auto 60.3 45-73 - % Imm Gran Pct Auto 0.2 0.0-0.4 - % Lymphocytes Percent Auto 27.1 20-40 - % Monocytes Percent Auto 9.5 2-11 - % Eosinophils Percent Auto 2.2 0-4 - % Basophils Percent Auto 0.7 0-2 - % NRBC Pct Auto 0.0 0.0-0.2 - /100WBC Neutrophils Absolute Auto 3.3 2.0-8.3 - x10* 3/uL Imm Gran Abs Auto 0.01 0.00-0.03 - X10*3/uL Lymphocytes Absolute Auto 1.5 1.2-4.9 - X10* 3/uL Monocytes Absolute Auto 0.5 0.1-1.2 - X10*3/ uL Eosinophils Absolute Auto 0.1 0.0-0.4 - X10* 3/uL Basophils Absolute Auto 0.0 0.0-0.2 - X10*3/ uL NRBC Abs Auto 0.000 0.0-0.012 - X10*3/uL L ab:Lipid Panel (Order Date - 10/15/2024) (Collection Date & Time - 10/15/2024 07:15 AM) Value Reference Range Triglycerides 199 H <150 - mg/dL Cholesterol 181 <200 - mg/dL LDL Cholesterol Calculated 100 H <100 - mg/dL HDL Cholesterol 42 >40 - mg/dL L ab:UA ClnCatch+Micro w/rflx Cult (Order Date - 10/15/2024) (Collection Date & Time - 10/15/2024 07:15 AM) Value Reference Range Color Urine Yellow - Appearance Urine Clear - PH 5.5 5.0-9.0 - Glucose Urine UA Negative Negative - mg/dL Urine Blood Negative Negative - Specific [place] - Urine 1.025 1.005-1.025 - Urine Protein Negative Neg-Trace - mg/dL Urine Ketones Negative Negative - mg/dL Nitrite Urine Negative Negative - Leukocyte Esterase Urine Negative Negative - RBC Urine 0-2 0-2 - /HPF WBC Urine 0-5 0-5 - /HPF Squamous Epithelial Cell Urine 0-2 0-2 - /HP F Bacteria Urine None Seen None Seen - Hyaline Casts Urine 0-2 0-2 - /LPF * Examination: G eneral Examination: GENERAL APPEARANCE: w ell developed, well nourished, in no acute distress. HEAD: n ormocephalic, atraumatic. EYES: p upils equal, round, reactive to light and accommodation, sclera non-icteric. EARS: n ormal. ORAL CAVITY: m ucosa moist. THROAT: c lear. NECK/THYROID: n zana supple, full range of motion, no cervical lymphadenopathy, no bruits. SKIN: w arm and dry, no suspicious lesions. HEART: r egular rate and rhythm, S1, S2 normal, no murmurs.? LUNGS: c lear to auscultation bilaterally. ABDOMEN: s oft, nontender, nondistended, bowel sounds present, normal, no organomegaly , no masses palpable. RECTAL EXAM: n ot examined. MALE GENITOURINARY: c ircumcised, no testicular mass, testes descended bilaterally. EXTREMITIES: n o clubbing, cyanosis, or edema. NEUROLOGIC: n onfocal, motor strength normal upper and lower extremities, sensory exam intact. Assessment: * Assessment: 1. A nnual physical exam - Z00.00 (Primary) 2 . R eflux esophagitis - K21.00 3 . T MJ (temporomandibular joint syndrome) - M26.609 4 . E levated LFTs - R79.89 5 . D epression screening - Z13.31 Plan: * Treatment: 2. R eflux esophagitis I maging: XR GI SERIES Notes: pending diagnostic testing 3. T MJ (temporomandibular joint syndrome) Notes: he is going to go to [facility] 4. E levated LFTs L AB: Liver Panel (Ordered for 12/10/2024) Notes: will continue to monitor, pending labs 5. D epression screening Notes: negative screen * Procedure Codes: * Follow Up: 6 Weeks * * Sign off status: Completed true * Provider: William West MD Date: 0 10/29/2024 Generated for Ama bloom/Acosta/eTransmitting on: 0 12/23/2024 04:09 PM EDT History and Physical Notes * HPI (History of Present Illness) Category Sub-Category Detail Notes Category Not es Symptom(s) patient is a 28 yo male here for annual visit with review of recent labs Depression Screening PHQ-9 Little inte rest or pleasure in doing things: Not at all has some tmj and is getting deviated septum done in may/ gets pains in chest 30 mins or an hour. gets better with pepcid/ sometimes throws up and feels like he has to throw up for the day. sometimes has trouble sitting straight up Feeling down, depressed, or hopeless: No t [...] Total Score: 0 Interpretation and Intervention Depression Alfrede carlita Findings: Negative Follow-Up for Depression: : review [...] warm and dry, no pretty picious lesions EXTREMITIES: no clubbing, cyanosi s, or edema MALE GENITOURINARY: circumcised, no test icular mass, testes descended bilaterally RECTAL EXAM: not examined ORAL CAVITY: mucosa moist
--- NOTE | ~2024-12-23 | XR_ITS ---
EXAMINATION: XR HAND, LEFT CLINICAL INFORMATION: FINGER PAIN, LEFT COMPARISON: None available. TECHNIQUE: PA, lateral, and oblique views of the left hand. FINDINGS: The bones and soft tissues are normal. No fracture. Alignment is anatomic. Joint spaces are maintained. No erosions or soft tissue calcifications. XR/XR hand LT 2V IMPRESSION: Unremarkable left hand x-ray Electronically signed by: Maycol Joy MD 12/23/2024 04:03 PM EDT
--- OUTSIDE RECORDS SUMMARY | 2024-12-23 16:09 | XMS_ITS | Encounter Summary ---
Author Organization [facility] Address [address] [place] [address] Phone Care Team Providers Care Advertising Sales Associate Name Role Phone Alla Menezes MD Primary Care Provider Encounter Details Date Type Department Care Team (Late st Contact Info) Description 08/16/2012 Documentation [facility] Family Medicine [address] [place] [address] Family Medicine, Physician [address] [place], [place] [phone] Social History Tobacco Use Types Packs/Day Years [...] on filedocumented in this encounter Care Teams Advertising Sales Associate Relationship Specialty Start Date End Date Alla Menezes MD [address] [place] [address] [place] [address] PCP - General 01/13/17 06/12/17 documented as of this encounter
--- OUTSIDE RECORDS SUMMARY | 2024-12-23 16:09 | XMS_ITS | Data Portability ---
Author Organization [place] [facility], [facility] Address [address] [facility] [address] [place] [address] Care Team Providers Care Core Sucker Name Role Phone JULIAN JEFFERSON Primary Care Provider Assessment Encounter Date Assessment Date Assessment LastModified [...] by Dr. Donald. Rhinoplasty + Turbinate reduction 84700, 99889 Sinus surgery: 94519, 35719, 14258 Not available 10/10/2024 10:58:50 Plan of Treatment [...] CT, maxillofa cial, w/o contrast 2024 025 [email or web address] [facility], [address] [place], [address], 07/05/2024 09:20:41 Medication Orders None recorded. Patient [...] ed. [email or web address] [facility] [address] [address], [place], [address], 08/14/2024 10:26:45 08/12/19 25 08/06/2024 CT, sinus es, w/o contr ast No observ ation record ed. [email or web address] [address], [address], 08/12/2024 13:08:24 10/25/[address], sinus es, w/o contr ast No observ ation record ed. [email or web address] Not Available 14:14:36 Result Notes None recorded. Problems Name Problem SNOMED Code Status Onset Date Resolution Date Notes Provider Name and Address Organization Details Recorded Time Bleeding from nose 148651274 Active 2018 Epistaxis ; Note: Date Diagnosed : 07/20/2018 1:46 PM (R04.0) Not Available [facility] 4 02:34:58 Deviated nasal septum 492904387 Active 2018 Deviated nasal septum; Note: Date Diagnosed : 07/20/2018 1:46 PM (J34.2) CHARU DONALD MD [address] [address], [place], [address] , [facility] - [facility] 5 09:14:40 Nasal congestion 32393130 Active 2018 Nasal congestio n; Note: Date Diagnosed : 07/20/2018 1:46 PM (R09.81) Not Available [facility] 4 02:34:50 Anterior epistaxis 046049043 Active 2024 PRINCESS SALAZAR MD [address], [place], [place], [address] , [place] [facility] 5 10:03:11 Abnormal auditory perception 36910917 Active 2024 PRINCESS SALAZAR MD [address], [place], [address] , [place] [facility] 5 10:03:28 Abnormal auditory perception 87155575 Active 2024 PRINCESS SALAZAR MD [address], [place], [place], [address] , [place] [facility] 5 10:03:34 Chronic sinusitis 95972745 Active 2024 PRINCESS SALAZAR MD [address], [place], [place], [address] , [place] [facility] 5 10:04:50 Incompeten ce of nasal valve 216527269 Active 2024 CHARU DONALD MD [address], [place], [place], [address] , [place] [facility] 5 12:53:10 Nasal sinus pressure sensation Active 2024 CHARU DONALD MD [address], [place], [place], [address] , [place] [facility] 5 12:53:27 Nasal obstructio n 897349660 Active 2024 CHARU DONALD MD [address], [place], [place], [address] , [place] [facility] 5 09:14:38 Temporoman dibular joint disorder 04323423 Active 2024 CHARU DONALD MD [address] [place],[address], [place], [address] , [facility] - [facility] 5 12:54:34 Chronic maxillary sinusitis 92132673 Active 2024 CHARU DONALD MD [address] [facility] [place], [place], [address] , [facility] - [facility] 10:59:34 Problem Notes None recorded. Procedures Surgical History Date Name Laterality Status Provider Name and Address Organization Details Recorded Time JMSNasal/Sinus Endoscopy completed PRINCESS VALLE MD [address] [facility],[address] [address], [place], [address], [facility] 06/28/2024 10:02:54 Air & Speech Audio with Tymps - 61756, 69450 & 93783 completed GABBIE JANSEN [address] [facility],[address] [address], [place], [address], [facility] 06/28/2024 10:20:32 Imaging Results None recorded. [...] tablet,ex tended release active Medicati on ID: [id number] B rand Name: Claritin -D 24 Hour Sen d Method: E-Prescr ibed Sub s Allowed: subs OK Medic ationGen ericName : Claritin -D 24 Hour Not Available Not Available Not Available Vitals Date Recorded Body height Body mass index (BMI) Body weight Provider Name and Address Organization Details Last Updated DateTime 06/28/2024 172.72 cm 21 kg/m2 95329.75 g Efren Saha [facility] 06/28/2024 09:33:34 Date Recorded Body height Body mass index (BMI) Body weight Provider Name and Address Organization Details Last Updated DateTime 08/06/2024 172.72 cm 21 kg/m2 61560.75 g Antione Mas [facility] 08/06/2024 11:22:44 Date Recorded Body height Body mass index (BMI) Body weight Provider Name and Address Organization Details Last Updated DateTime 10/10/2024 172.72 cm 21 kg/m2 70686.75 g Esthercynthia Dunbar [facility] 10/10/2024 08:50:16 Social History None recorded. Functional Status None recorded. Mental Status None recorded. Family History Nothing Reported. Medical History No medical history recorded. Past Encounters Encounter ID Performer Location Encounter Start Date Encounter Closed Date Diagnosis/Indication Diagnosis SNOMED-CT Code Diagnosis ICD10 Code Diagnosis Note [id number] PRINCESS SALAZAR MD [facility] [address] [address] 06/28/2024 09:02:42 06/28/2024 10:30:18 Anterior epistaxis 533383825 R04.0 Deviated nasal septum 12 4482920 J34.2 Nasal congestion 0889794 0 R09.81 Patient with sensation of sinus [...] surgical interventi on. Abnormal a uditory perception 13506995 H93.292 Small amount of cerumen was removed [...] tion.Type A tympanogra m.TMJ precaution s discussed [id number] CHARU DONALD MD [facility] [address] [address] 08/06/2024 10:49:18 08/06/2024 12:16:32 Deviated nasal septum 111174629 J34.2 Incompeten ce of nasal valve 019837950 J34.89 Nasal sinu s pressure sensation 3041073238 J34.89 Nasal obstruction 763012 000 J34.89 Temporoman dibular joint disorder 13434105 M26.609 [id number] CHARU DONALD MD [facility] [address] [address] 10/10/2024 08:30:15 10/10/2024 12:13:32 Nasal obstruction 169789185 J34.89 Deviated nasal septum 12 5713589 J34.2 Incompeten ce of nasal valve 476363701 J34.89 Nasal sinu s pressure sensation 4965057107 J34.89 Chronic nd xillary sinusitis 75312810 J32.0 Health Concerns Section Related Observation LastModified by Organization Detai ls LastModified Time None Recorded Concern Status LastModified by Organization Details LastModified Time None Recorded Advance Directives Directive None Recorded Payers Insurance Date Sequence Insurance Name Policy Number Policy Iglesias Covered Member ID Iglesias Member ID Guarantor Name 10/23/2024 1 [facility] [id number] Gregory Melodie [id number] Gregory Melodie Notes Date Note Type Note Provider Name and Address Organization Details Recorded Time 5 text/html Sensation of fullness left ear, jaw popping left side and recurrent epistaxis right sideUnclear if any hearing lossHx of DNS. Epistaxis frequently but feels Claritin D preventsHx of sinus pressure PRINCESS VALLE MD [address] [place] [address], [address], [facility] - [facility] 06/28/2024 10:28:48 5 text/html On a [...] Otherwise patent paranasal sinuses. CHARU DONALD MD [address] [place] [address], [address], [place] [facility] 08/06/2024 12:54:56 text/html On a scale [...] Otherwise patent paranasal sinuses. CHARU DONALD MD [address] [place] [address],[address], [address], [place] [facility] 10/10/2024 11:00:15
== END 2024-12-23 15:42 | disposition home or self-care (01) ==
LOC: HO.XRAY 15:41
PROVIDERS: PCP Internal Medicine; Visit Provider Internal Medicine
DX: M79.645 Pain in left finger(s) (principal)
CPT/HCPCS: 73120

== ENCOUNTER → 2024-12-23 15:47 | Outpatient (BNV) | payer BC, SELFPAY | PROVIDERS: PCP Internal Medicine; Visit Provider Radiology Diagnostic Radiology | DX: M79.642 Pain in left hand (principal) | CPT/HCPCS: 73120 ==

== ENCOUNTER 2025-02-20 08:07 | Outpatient (REF) | payer BC, SELFPAY ==
--- OUTSIDE RECORDS SUMMARY | 2024-07-02 07:00 | XMS_ITS ---
Author Organization Carlos West MD Address [address] [place] [id number] Care Team Providers Care Cut To Length Operator Name Role Phone Carlos West Primary Care Provider REASON FOR VISIT Medication Medications Medication SIG (Take, Route, Fr equency, Duration) Notes Start Date End Date Status valACYclovir HCl 500 MG 1 tablet Orally Once a day for 90 days 07/02/2024 Active Encounters Encounter Location Date Provider Diagnosis Carlos West MD [address] [place] [address] [place] [phone] 07/02/2024 Carlos West Plan Of Treatment Medication Medication Name Sig Start Date Stop Date Notes valACYclovir HCl 500 MG 1 tablet Orally Once a day for 90 days 07/02/2024 Next Appt Details Provider Name:Carlos john, 10/28/2025 07:15:00 AM, [address] [place] [address], [address], [phone], Provider Name:Carlos john, 11/04/2025 02:30:00 PM, [address] [place] [address], [address], [phone], Progress Notes * Gregory SEWELL MDOB:1995 (28 yo M)Acc No.[id number]:07/02/2024 Patient: Aura Gregory SANDERS :1995 A ge:28 Y S ex:Male Address: [place], [address] * Refills Start valACYclovir HCl Tablet, 500 MG, Orally, 90 Tablet, 1 tablet, Once a day, 90 days, Refills=3 * true * Date: Generated for Ama bloom/Acosta/Dustin on: 0 02/20/2025 08:30 AM EDT
--- OUTSIDE RECORDS SUMMARY | 2024-10-15 03:15 | XMS_ITS ---
Author Organization Carlos West MD Address [address] [place], [place] [phone] Care Team Providers Care Bond Analyst Name Role Phone Carlos West Primary Care Provider [phone] Results Component Value Reference Range Notes Complete Blood Count Auto Di ff Reviewed date:10/15/2024 08:18:47 PM Interpretation: Performing Lab:[facility], [address] [place] [phone] Notes/Report: White Blood Count 5.5 4.8-10.8 X10*3/uL Red Blood Count 5.33 4.60-5.80 X10*6/uL Hemoglobin 16.6 14.0-18.0 g/dl Hematocrit 47.6 42.0-52.0 % Mean Corpuscular Volume 89.3 80.0-98.0 fL Mean Corpuscular Hemoglobin 31.1 27.0-33.0 pg Mean Corpuscular HGB Conc 34.9 31.0-36.0 g/dl Red Cell Distribution Width 12.6 11.0-16.0 % Platelet Count 237 160-400 X10*3/uL Mean Platelet Volume 11.0 9.4-12.4 fL Neutrophils Percent Auto 60.3 45-73 % Imm Gran Pct Auto 0.2 0.0-0.4 % Lymphocytes Percent Auto 27.1 20-40 % Monocytes Percent Auto 9.5 2-11 % Eosinophils Percent Auto 2.2 0-4 % Basophils Percent Auto 0.7 0-2 % NRBC Pct Auto 0.0 0.0-0.2 /100WBC Neutrophils Absolute Auto 3.3 2.0-8.3 x10*3/u L Imm Gran Abs Auto 0.01 0.00-0.03 X10*3/uL Lymphocytes Absolute Auto 1.5 1.2-4.9 X10*3/u L Monocytes Absolute Auto 0.5 0.1-1.2 X10*3/uL Eosinophils Absolute Auto 0.1 0.0-0.4 X10*3/u L Basophils Absolute Auto 0.0 0.0-0.2 X10*3/uL NRBC Abs Auto 0.000 0.0-0.012 X10*3/uL Comprehensive [place]. Panel Fa st Reviewed date:10/29/2024 03:36:53 PM Interpretation:10-29-2024 Performing Lab:[address] [id number] Notes/Report: Sodium 139 135-145 mmol/L Potassium 3.8 3.3-5.1 mmol/L Chloride 103 96-108 mmol/L Carbon Dioxide 27 22-29 mmol/L Anion Gap 13 12-20 Blood Urea Nitrogen 15 9-16 mg/dL Creatinine 1.01 0.5-1.4 mg/dL Estimated Glomerular Filt Rate > 60 Chronic Kidney Disease: Estimated GFR < 60 mL/min/1.73m2 Severe Kidney Disease: Estimated GFR < 15 mL/min/1.73m2 Glucose Fasting 83 60-99 mg/dL Calcium 9.2 8.4-10.2 mg/dL Bilirubin Total 0.6 0.0-1.0 mg/dL Aspartate Amino Transferase 38 5-37 U/L Alanine Aminotransferase 59 0-40 U/L Total Protein 6.8 6.5-8.0 g/dL Albumin Level 4.3 3.5-5.0 g/dL Alkaline Phosphatase 62 39-117 U/L Lipid Panel Reviewed date:10/15/2024 01:11:48 PM Interpretation: Performing Lab:[address] [id number] Notes/Report: Triglycerides 199 <150 mg/dL Desirable Triglyceride: less than 150 mg/dL Borderline High Triglyceride 150-199 mg/dL High Triglyceride: 200-499 mg/dL Very High Triglyceride: greater than or equal to 5OO mg/dL Cholesterol 181 <200 mg/dL Desirable Cholesterol: less than 200 mg/dL Borderline High Cholesterol: 200-239 mg/dL High Cholesterol: greater than 239 mg/dL LDL Cholesterol Calculated 100 <100 mg/dL Desirable LDL: less than 100 mg/dL Near Optimal/Above Optimal LDL: 110-129 mg/dL Borderline High LDL: 130-159 mg/dL High LDL: 160-189 mg/dL Very High LDL: greater than or equal to 190 mg/dL HDL Cholesterol 42 >40 mg/dL Desirable HDL: greater than 40 mg/dL Note: This HDL assay may give artificially low results in patients with liver disease. UA ClnCatch+Micro w/rflx Cul t Reviewed date:10/15/2024 01:11:05 PM Interpretation: Performing Lab:[facility], [address] [place] [phone] Notes/Report: Urine, Clean Catch Color Urine Yellow Appearance Urine Clear PH 5.5 5.0-9.0 Glucose Urine UA Negative Negative mg/dL Urine Blood Negative Negative Specific [place] - Urine 1.025 1.005-1.025 Urine Protein Negative Neg-Trace mg/dL Urine Ketones Negative Negative mg/dL Nitrite Urine Negative Negative Leukocyte Esterase Urine Negative Negative RBC Urine 0-2 0-2 /HPF WBC Urine 0-5 0-5 /HPF Squamous Epithelial Cell Urine 0-2 0-2 /HPF Bacteria Urine None Seen None Seen Hyaline Casts Urine 0-2 0-2 /LPF REASON FOR VISIT FASTING LABS Encounters Encounter Location Date Provider Diagnosis Carlos West MD [address] [place] [phone] 10/15/2024 Carlos West Blood tests for routine general physical examination Z00.00 Assessments Encounter Date Diagnosis (ICD Code) Assessment Notes Treatment Notes Treatment Clinical Notes Section Notes 10/15/2024 Blood tests for routine general physical examination (ICD-10 - Z00.00) Plan Of Treatment Next Appt Details Provider Name:Carlos john, 10/28/2025 07:15:00 AM, [address] [place] [address], [address], [phone], Provider Name:Carlos john, 11/04/2025 02:30:00 PM, [address] [place] [address], [address], [phone], Progress Notes * Gregory SEWELL MDOB:1995 (29 yo M)Acc No.[id number]:10/15/2024 Progress Note Patient: Gregory SEGUNDO Provider: William West MD :1995 A ge:28 Y S ex:Male Date:10/15/2024 Address:[address] [place] [address] Subjective: * Chief Complaints: * 1 . FASTING LABS. * Medical History: Objective: * Vitals: Assessment: * Assessment: 1. B lood tests for routine general physical examination - Z00.00 (Primary) Plan: * Treatment: * Procedure Codes: 3 6415 VENIPUNCT, ROUTINE* * * The named appointment provid er may or may not be the originator of this progress note, and it is not deemed complete until electronically signed by the appointment provider. Sign off status: Pending * Provider: William West MD Date: 0 10/15/2024 Generated for Ama bloom/Acosta/Humbertoitting on: 0 02/20/2025 08:30 AM EDT
--- OUTSIDE RECORDS SUMMARY | 2024-10-29 10:30 | XMS_ITS ---
Author Organization Carlos West MD Address [address] [place], [place] [phone] Care Team Providers Care Microfilm Camera Operator Name Role Phone Carlos West Primary Care Provider [phone] Allergies No Known Allergies REASON FOR VISIT [...] W/U Status Risk Notes Problem Reflux esophagitis (348737839) Reflux esophagitis (K21.00) Active confirmed Vital Signs Blood pressure systolic 118 mm Hg 10/30/19 25 Blood pressure diastolic 66 mm Hg 025 Height 68 in 10/29/2024 Weight 147 lbs 10/29/2024 BMI 22.35 kg/m2 10/29/2024 weight is up 4 pounds since 10-23-23 Encounters Encounter Location Date Provider Diagnosis Carlos West MD [address] [place] [address] Drive [address] [place], [place] [phone] 10/29/2024 Carlos West Annual physical exam Z00.00 [...] M26.609) he is going to go to [facility] 10/29/2024 Elevated LFTs (ICD-10 - R79.89) will continue to monitor, pending labs 10/29/2024 Depression screening (ICD-10 - Z13.31) negative screen Plan Of Treatment Treatment Notes Assessment Notes Annual physical exam labs reviewed and d iscussed with patient Reflux esophagitis pending diagnostic t esting TMJ (temporomandibular joint syndrome) h e is going to go to [facility] Elevated LFTs will continue to mon itor, pending labs Depression screening negative screen Pending Test Test Name Order Date XR GI SERIES 10/29/2024 Next Appt Details Follow Up: 6 Weeks, Reason: Provider Name:Carlos john, 10/28/2025 07:15:00 AM, [address] [place] [address], [address], [place], [place], [phone], Provider Name:Carlos john, 11/04/2025 02:30:00 PM, [address] [place] [address], [address], [place], [place], [phone], Progress Notes * Gregory SEWELL MDOB:1995 (28 yo M)Acc No.[id number]:10/29/2024 Progress Notes Patient: Gregory SEGUNDO Provider: William West MD :1995 A ge:28 Y S ex:Male Date:10/29/2024 Address: [place] [address], [facility] Subjective: * Chief Complaints: * A NNUAL [...] T obacco Use: T obacco Use/Smoking P atmely is a n onsmoker, A dditional Findings: [...] Travel outside of the [place]: yes, [employer]. * Medications: T akingvalACYclovir HCl 500 MG [...] mg/dL Urine Blood Negative Negative - Specific [place] - Urine 1.025 1.005-1.025 - Urine Protein [...] Notes: he is going to go to [facility] 4. E levated LFTs L AB: Liver Panel (Ordered for 12/10/2024) Notes: will continue to monitor, pending labs 5. D epression screening Notes: negative screen * Procedure Codes: * Follow Up: 6 Weeks * * Sign off status: Completed true * Provider: William West MD Date: 0 10/29/2024 Generated for Ama bloom/Acosta/Gilsonransmitting on: 0 02/20/2025 08:28 AM EDT History and Physical Notes * [...]
--- OUTSIDE RECORDS SUMMARY | 2024-12-10 03:30 | XMS_ITS ---
Author Organization Carlos West MD Address [address] [place], [place] [phone] Care Team Providers Care Pharmacist Technician Name Role Phone Carlos West Primary Care Provider Results Component Value Reference Range Notes Liver Panel Reviewed date:12/10/2024 12:35:21 PM Interpretation: Performing Lab:[facility], [address] [place] [id number] Notes/Report: Bilirubin Total 0.7 0.0-1.0 mg/dL Bilirubin Direct 0.2 0.0-0.5 mg/dL Aspartate Amino Transferase 31 5-37 U/L Alanine Aminotransferase 43 0-40 U/L Total Protein 6.7 6.5-8.0 g/dL Albumin Level 4.5 3.5-5.0 g/dL Alkaline Phosphatase 59 39-117 U/L REASON FOR VISIT liver panel Encounters Encounter Location Date Provider Diagnosis Carlos West MD [address] [place] [address] [place] [phone] 12/10/2024 Carlos West Elevated LFTs R79.89 Assessments Encounter Date Diagnosis (ICD Code) Assessment Notes Treatment Notes Treatment Clinical Notes Section Notes 12/10/2024 Elevated LFTs (ICD-10 - R79.89) Plan Of Treatment Next Appt Details Provider Name:Carlos john, 10/28/2025 07:15:00 AM, [address], [address], [place], [place], [phone], Provider Name:Carlos john, 11/04/2025 02:30:00 PM, [address] [place] [address], [address], [place], [place], [phone], Progress Notes * Gregory SEWELL MDOB:1995 (29 yo M)Acc No.[id number]:12/10/2024 Progress Note Patient: Gregory SEGUNDO Provider: William West MD :1995 A ge:28 Y S ex:Male Date:12/10/2024 Address:[address] [place], [place] [phone] Subjective: * Chief Complaints: * 1 . Liver panel. * Medical History: Objective: * Vitals: Assessment: * Assessment: 1. E levated LFTs - R79.89 (Primary) Plan: * Treatment: * Procedure Codes: 3 6415 VENIPUNCT, ROUTINE* * * The named appointment provid er may or may not be the originator of this progress note, and it is not deemed complete until electronically signed by the appointment provider. Sign off status: Pending * Provider: William West MD Date: 12/10/2024 Generated for Ama bloom/Acosta/Mikelsmitting on: 02/20/2025 08:29 AM EDT
--- OUTSIDE RECORDS SUMMARY | 2024-12-17 09:45 | XMS_ITS ---
Author Organization Carlos West MD Address [address] [place] [phone] Care Team Providers Care Hvac R Tech Name Role Phone Carlos West Primary Care Provider Allergies No Known Allergies Results Component Value Reference Range Notes XR hand LT 2V Reviewed date:12/23/2024 07:28:29 PM Interpretation: Performing Lab: Notes/Report: [address] [address] XRay Report Signed Patient: Gregory Sewell MR#: [id number] 5 : 1995 Acct:[id number] Age/Sex: 28 / M ADM Date: 12/23/24 Loc: HO.XRAY Attending Dr: Carlos West MD Ordering Physician: Carlos West MD Date of Service: 12/23/24 Procedure(s): XR hand LT 2V Accession Number(s): [id number] cc: Carlos West MD EXAMINATION: XR HAND, LEFT CLINICAL INFORMATION: FINGER PAIN, LEFT COMPARISON: None available. TECHNIQUE: PA, lateral, and oblique views of the left hand. FINDINGS: The bones and soft tissues are normal. No fracture. Alignment is anatomic. Joint spaces are maintained. No erosions or soft tissue calcifications. XR/XR hand LT 2V IMPRESSION: Unremarkable left hand x-ray Electronically signed by: Maycol Joy MD 12/23/2024 04:03 PM EDT Dictated By: Maycol Joy MD Signed By: <Electronically signed by Maycol Joy MD in OV> 12/23/24 1603 DD/ 1550 TD/TT: 12/23/24 1555 Clinical Informaticist: [address] [address] XRay Report Signed Patient: Gregory Sewell MR#: [id number] 5 : 1995 Acct:[id number] Age/Sex: 28 / M ADM Date: 12/23/24 Loc: HO.XRAY Attending Dr: Carlos West MD Ordering Physician: Carlos West MD Date of Service: 12/23/24 Procedure(s): XR hand LT 2V Accession Number(s): [id number] cc: Carlos West MD EXAMINATION: XR HAND, LEFT CLINICAL INFORMATION: FINGER PAIN, LEFT COMPARISON: None available. TECHNIQUE: PA, lateral, and obl ique views of the left hand. FINDINGS: The bones and soft t issues are normal. No fracture. Alignment is anatomic. Joint spac es are maintained. No erosions or soft tissue calcifications. X R/XR hand LT 2V IMPRESSION: Unremarkable left hand x-ray Electronically opal d by: Maycol Joy MD 12/23/2024 04:03 PM EDT Dictated By: Maycol Joy MD Signed By: <Electron ically signed by Maycol Joy MD in OV> 12/23/24 1603 DD/ 1550 TD/TT: 12/23/24 1555 Clinical Informaticist: Reason For Referral Reason IBS Diagnosis 1 IBS (irritable bowel syndrome) (K58.9) Referral Organization Carlos West MD Referring Provider First Name Carlos Referring Provider Last Name Brett Referring Provider Speciality Internal M edicine Referred Provider Marcos Bautista Referred Provider Specialty Gastroentero logy General Notes Aurea Torres 0 12/17/2024 02:44:41 PM > send upper GI report, Aurea Torres 12/20/2024 11:21:48 AM >info faxed, Aurea Torres 01/06/2025 08:33:35 AM >Called patient with info and mailed Referral Priority Routine Referral Appointment Date 05/06/2025 REASON FOR VISIT 6 week -liver panel Medications Medication SIG (Take, Route, Frequency, Duration) Notes Start Date End Date Status Hyoscyamine Sulfate ER 0.375 MG 1 tablet Orally once a day for 30 days 12/17/2024 Active Claritin-D 24 Hour 10-240 MG 1 tablet as needed Orally Once a day for 30 day(s) Not-Taking Doxycycline Hyclate 100 MG 1 capsule Orally Once a day for 10 day(s) 06/11/2020 Not-Taking valACYclovir HCl 500 MG 1 tablet Orally Once a day for 90 days 07/02/2024 Active Problems Problem Type SNOMED Code ICD Code Onset Dates Problem Status W/U Status Risk Notes Problem Irritable bowel syndrome (12650660) IBS (irritable bowel syndrome) (K58.9) Active confirmed Vital Signs Blood pressure systolic 102 mm Hg 12/18/19 25 Blood pressure diastolic 60 mm Hg 025 Height 68 in 12/17/2024 Weight 145 lbs 12/17/2024 BMI 22.04 kg/m2 12/17/2024 weight is down 2 pounds [facility] 10-29-24 Encounters Encounter Location Date Provider Diagnosis Carlos West MD [address] [place] [phone] 12/17/2024 Carlos West IBS (irritable bowel syndrome) K58.9 and Finger pain, left M79.645 Assessments Encounter Date Diagnosis (ICD Code) Assessment Notes Treatment Notes Treatment Clinical Notes Section Notes 12/17/2024 IBS (irritable bowel syndrome) (ICD-10 - K58.9) referral to gi as he says the radiologist felt he couldn't tell what was in stomach so should be scoped, patient verbalized understanding of medication and directions for use 12/17/2024 Finger pain, left (ICD-10 - M79.645) pending diagnostic testing Plan Of Treatment Medication Medication Name Sig Start Date Stop Date Notes Hyoscyamine Sulfate ER 0.375 MG 1 tablet Orally once a day for 30 days 12/17/2024 Treatment Notes Assessment Notes IBS (irritable bowel syndrome) referral to gi as he says the radiologist felt he couldn't tell what was in stomach so should be scoped, patient verbalized understanding of medication and directions for use Finger pain, left pending diagnostic t esting Referrals Referral Date Details 12/17/2024 12/17/2024, IBS, Asa guanako Bautista Next Appt Details Provider Name:Carlos Johnson ier, 10/28/2025 07:15:00 AM, [address], [address], [place], [place], [phone], Provider Name:Carlos Johnson ier, 11/04/2025 02:30:00 PM, [address], [address], [place], [place], [phone], Progress Notes * Gregory SEWELL MDOB:1995 (28 yo M)Acc No.[id number]:12/17/2024 Progress Notes Patient: Gregory SEGUNDO Provider: William West MD :1995 A ge:28 Y S ex:Male Date:12/17/2024 Address:[address] [place], [place] [id number] Subjective: * Chief Complaints: * 6 week -liver panel * HPI: S ymptom(s): patient is a 28 yo male here for 6 week follow up visit/ gets pain in uppper back and ant chest and ln left upper quadrant and has to get out of bed and walk around. shooting pain/ gets dizziness and sweats./ can't focus. . has it for year and is almost daily. sometimes 30 min to an hour. feels like he has to have a bm or vomit/ has lost no weight. no issues with eating. bowels mostly sury goes more than once a day. * ROS: G eneral/Constitutional: Denies C hills. D enies F atigue. D enies F ever. D enies H eadache. E NT: Denies S ore throat. R espiratory: Denies C ough. D enies S hortness of breath at rest. D enies S hortness of breath with exertion. G astrointestinal: Denies D iarrhea. D enies N ausea. * Medical History: * Surgical History: * Hospitalization/Major Diagno stic Procedure: * Medications: T akingvalACYclovir HCl 500 MG [...] Objective: * Vitals: H t: 68, Wt: 145, BMI:22.04, BP:102/60, Wt-k.77. weight is down 2 pounds since 10-29-24. * P ast Orders: L ab:Liver Panel (Order Date - 12/10/2024) (Collection Date & Time - 12/10/2024 07:30 AM) Value Reference Range Bilirubin Total 0.7 0.0-1.0 - mg/dL Bilirubin Direct 0.2 0.0-0.5 - mg/dL Aspartate Amino Transferase 31 5-37 - U/L Alanine Aminotransferase 43 H 0-40 - U/L Total Protein 6.7 6.5-8.0 - g/dL Albumin Level 4.5 3.5-5.0 - g/dL Alkaline Phosphatase 59 39-117 - U/L * Examination: G eneral Examination: GENERAL APPEARANCE: w ell developed, well nourished. HEAD: n ormocephalic. SKIN: g ood turgor. HEART: r egular rate and rhythm, no murmurs, rubs, gallops.? LUNGS: n o wheezes, rales, rhonchi, good air movement, clear to auscultation bilaterally. ABDOMEN: n o rebound tenderness, soft, nontender, nondistended, no organomegaly. EXTREMITIES: a bnormal left middle finger with painful swollen proximal joint. Assessment: * Assessment: 1. I BS (irritable bowel syndrome) - K58.9 (Primary) 2 . F elvia pain, left - M79.645 Plan: * Treatment: 2. F elvia pain, left I maging: XR hand LT 2V Notes: pending diagnostic testing * Procedure Codes: * * Sign off status: Completed true * Provider: William West MD Date: 0 12/17/2024 Generated for Catarinoi wolf/Acosta/eTransmitting on: 0 02/20/2025 08:28 AM EDT History and Physical Notes * HPI (History of Present Illness) Category Sub-Category Detail Notes Category Not es Symptom(s) patient is a 28 yo male here for 6 week follow up visit/ gets pain in uppper back and ant chest and ln left upper quadrant and has to get out of bed and walk around. shooting pain/ gets dizziness and sweats./ can't focus. . has it for year and is almost daily. sometimes 30 min to an hour. feels like he has to have a bm or vomit/ has lost no weight. no issues with eating. bowels mostly sury goes more than once a day Examination Category Sub-Category Detail Notes Category Not es General Examination GENERAL APPEARANCE: well developed , well nourished HEAD: normocephalic HEART: regular rate and rhy thm, no murmurs, rubs, gallops LUNGS: no wheezes, rales, r honchi, good air movement, clear to auscultation bilaterally ABDOMEN: no rebound tendernes s, soft, nontender, nondistended, no organomegaly SKIN: good turgor EXTREMITIES: abnormal left middle finger with painful swollen proximal joint Consultation Request Notes Referral Date Referring Provider Referred Provider Not es 12/17/2024 Cralos West Robert IBS
--- NOTE | ~2025-02-20 | FL_ITS ---
EXAMINATION: XR GI AIR CONTRAST SERIES CLINICAL INFORMATION: Gastroesophageal reflux disease without esophagitis. COMPARISON: None available. TECHNIQUE: Routine upper GI air contrast study was performed in upright and lying position. FINDINGS: Oral administration of thick barium and effervescent granules in upright view there is normal propagation of bolus from the oral cavity through the pharynx, esophagus into stomach without any evidence of obstruction, narrowing or stricture. There is no extrinsic compression either. On placing patient supine and prone lying the course, caliber and peristalsis of the stomach is normal. There is increased gastric secretions with mild gastroesophageal reflux. No hiatal hernia. The mucosal pattern of the stomach, duodenal bulb and the sweep is normal. FLUOROSCOPY TIME: 2 minute 45 seconds DOSE AREA PRODUCT: 64.93 uGy-m2 (microgray-meter squared) FL/FL upper GI w air IMPRESSION: Mild gastroesophageal reflux with increased gastric secretion. No gastric ulceration or mucosal erosion seen. Electronically signed by: Vahid Zaragoza MD 02/20/2025 02:42 PM EDT
--- OUTSIDE RECORDS SUMMARY | 2025-02-20 08:29 | XMS_ITS | Encounter Summary ---
Author Organization [facility] Address [address] [place] [address] Phone Care Team Providers Care Post Exchange Manager Name Role Phone Alla Menezes MD Primary Care Provider [phone] Encounter Details Date Type Department Care Team (Late st Contact Info) Description 08/16/2012 Documentation [facility] [place] [address] [place] [address] Family Medicine, Physician [address] [place], [place] [phone] Social History Tobacco Use Types Packs/Day Years [...] on filedocumented in this encounter Care Teams Post Exchange Manager Relationship Specialty Start Date End Date Alla Menezes MD [address] [place] [address] [place] [address] PCP - General 01/13/17 06/12/17 documented as of this encounter
--- OUTSIDE RECORDS SUMMARY | 2025-02-20 08:29 | XMS_ITS | Encounter Summary ---
Author Organization [facility] Address [address] [place] [address] Phone Care Team Providers Care Web Site Manager Name Role Phone Alla Menezes MD Primary Care Provider [phone] Encounter Details Date Type Department Care Team (Late st Contact Info) Description 08/19/2011 Documentation [facility] [place] Family Medicine [address] [place] [address] Family Medicine, Physician [address] [place], [place] [phone] Social History Tobacco Use Types Packs/Day Years [...] on filedocumented in this encounter Care Teams Web Site Manager Relationship Specialty Start Date End Date Alla Menezes MD [address] [place] [address] [place] [address] PCP - General 01/13/17 06/12/17 documented as of this encounter
--- OUTSIDE RECORDS SUMMARY | 2025-02-20 08:29 | XMS_ITS | Encounter Summary ---
Author Organization [facility] Address [address] [place] [address] Phone Care Team Providers Care Evaporator Supervisor Name Role Phone Alla Menezes MD Primary Care Provider [phone] Encounter Details Date Type Department Care Team (Late st Contact Info) Description 01/19/2017 Conversion Encounter [facility] [address] [place] [address] Social History Tobacco Use Types Packs/Day Years [...] on filedocumented in this encounter Care Teams Evaporator Supervisor Relationship Specialty Start Date End Date Alla Menezes MD [address] [place] [address] PCP - General 01/13/17 06/12/17 documented as of this encounter
--- OUTSIDE RECORDS SUMMARY | 2025-02-20 08:29 | XMS_ITS | Encounter Summary ---
Author Organization [facility] Address [address] [place] [address] Phone Care Team Providers Care Assistant Facility Manager Name Role Phone Alla Menezes MD Primary Care Provider [phone] Encounter Details Date Type Department Care Team (Late st Contact Info) Description 08/16/2012 Documentation [facility] [address] [place] [address] Family Medicine, Physician [address] [place], [place] [phone] Social History Tobacco Use Types Packs/Day Years [...] on filedocumented in this encounter Care Teams Assistant Facility Manager Relationship Specialty Start Date End Date Alla Menezes MD [address] [place] [address] [place] [address] PCP - General 01/13/17 06/12/17 documented as of this encounter
--- OUTSIDE RECORDS SUMMARY | 2025-02-20 08:29 | XMS_ITS | Patient Health Record ---
Author Organization Carlos West MD Address [address] [place], [place] [address] Care Team Providers Care Insole Stiffener Name Role Phone Carlos West Primary Care Provider Allergies No Known Allergies Results Component Value Reference Range Notes Complete Blood Count Auto Di ff Reviewed date:10/15/2024 08:18:47 PM Interpretation: Performing Lab:[facility], [address] [place] [phone] Notes/Report: White Blood Count 5.5 4.8-10.8 X10*3/uL [...] NRBC Abs Auto 0.000 0.0-0.012 X10*3/uL Comprehensive [place]. Panel Fa st Reviewed date:10/29/2024 03:36:53 PM Interpretation:10-29-2024 Performing Lab:[facility], [address] [place] [phone] Notes/Report: Sodium 139 135-145 mmol/L Potassium 3.8 [...] Panel Reviewed date:10/15/2024 01:11:48 PM Interpretation: Performing Lab:[address] [phone] Notes/Report: Triglycerides 199 <150 mg/dL Desirable Triglyceride: [...] t Reviewed date:10/15/2024 01:11:05 PM Interpretation: Performing Lab:[facility], [address] [place] [phone] Notes/Report: Urine, Clean Catch Color Urine Yellow Appearance Urine Clear PH 5.5 5.0-9.0 Glucose Urine UA Negative Negative mg/dL Urine Blood Negative Negative Specific [place] - Urine 1.025 1.005-1.025 Urine Protein Negative Neg-Trace mg/dL Urine Ketones Negative Negative mg/dL Nitrite Urine Negative Negative Leukocyte Esterase Urine Negative Negative RBC Urine 0-2 0-2 /HPF WBC Urine 0-5 0-5 /HPF Squamous Epithelial Cell Urine 0-2 0-2 /HPF Bacteria Urine None Seen None Seen Hyaline Casts Urine 0-2 0-2 /LPF Liver Panel Reviewed date:12/10/2024 12:35:21 PM Interpretation: Performing Lab:[facility], [address] [place] [phone] Notes/Report: Bilirubin Total 0.7 0.0-1.0 mg/dL Bilirubin Direct 0.2 0.0-0.5 mg/dL Aspartate Amino Transferase 31 5-37 U/L Alanine Aminotransferase 43 0-40 U/L Total Protein 6.7 6.5-8.0 g/dL Albumin Level 4.5 3.5-5.0 g/dL Alkaline Phosphatase 59 39-117 U/L XR hand LT 2V Reviewed date:12/23/2024 07:28:29 PM Interpretation: Performing Lab: Notes/Report: [address] [address] XRay Report Signed Patient: Gregory Sewell MR#: [id number] 5 : 1995 Acct:[id number] Age/Sex: 28 / M ADM Date: 12/23/24 Loc: [facility] Attending Dr: Carlos West MD Ordering Physician: Carlos West MD Date of Service: 12/23/24 Procedure(s): XR hand LT 2V Accession Number(s): [id number] cc: Carlos West MD EXAMINATION: XR HAND, [...] Maycol Joy MD 12/23/2024 04:03 PM EDT RP Dictated By: Maycol Joy MD Signed By: <Electronically signed by Maycol Joy MD in OV> 12/23/24 1603 DD/ 1550 TD/TT: 12/23/24 1555 Commissary Steward: [place] [address] XRay Report Signed Patient: Gregory Sewell MR#: [id number] 5 : 1995 Acct:[id number] Age/Sex: 28 / M ADM Date: 12/23/24 Loc: [facility] Attending Dr: Carlos West MD Ordering Physician: Carlos West MD Date of Service: 12/23/24 Procedure(s): XR patel d LT 2V Accession Number(s): [id number] cc: Carlos West MD EXAMINATION: XR HAND, LEFT CLINICAL INFORMATION: FINGER PAIN, LEFT COMPARISON: None available. TECHNIQUE: PA, lateral, and oblique views of the left hand. FINDINGS: The bones and soft tissues are normal. No fracture. Alignment is anatomic. Joint spac es are maintained. No erosions or soft tissue calcifications. XR/XR hand LT 2V IMPRESSION: Unremarkable left smith nd x-ray Electronically opal d by: Maycol Joy MD 12/23/2024 04:03 PM EDT Dictated By: Maycol Joy MD Signed By: <Electronically signed by Maycol Joy MD in OV> 12/23/24 1603 DD/ 1550 TD/TT: 12/23/24 1555 Commissary Steward: Reason For Referral Reason IBS Diagnosis 1 IBS (irritable bowel syndrome) (K58.9) Referral Organization Carlos West MD Referring Provider First Name Carlos Referring Provider Last Name Brett Referring Provider Speciality Internal M edicine Referred Provider Marcos Bautista Referred Provider Specialty Gastroentero logy General Notes Aurea Torres 0 12/17/2024 02:44:41 PM > send upper GI reportMelissa Annette 12/20/2024 11:21:48 AM >info faxedMelissa Annette 01/06/2025 08:33:35 AM >Called patient with info and mailed Referral Priority Routine Referral Appointment Date 05/06/2025 Medications Medication SIG (Take, Route, Frequency, Duration) [...] W/U Status Risk Notes Problem Reflux esophagitis (631295286) Reflux esophagitis (K21.00) Active confirmed Problem Irritable bowel syndrome (31752807) IBS (irritable bowel syndrome) (K58.9) Active confirmed Vital Signs Blood pressure diastolic 60 mm Hg 12/17/2024 breanne ght is down 2 pounds since 10-29-24 Height 68 in 12/17/2024 weight is down 2 pounds since 10-29-24 Blood pressure systolic 102 mm Hg 12/17/2024 weig ht is down 2 pounds since 10-29-24 Weight 145 lbs 12/17/2024 weight is down 2 pounds since 10-29-24 BMI 22.04 kg/m2 12/17/2024 weight is down 2 pounds since 10-29-24 Encounters Encounter Location Date Provider Diagnosis Carlos West MD [address] [place] [address] Drive [address] [place] [id number] 10/15/2024 Carlos West Blood tests for routine general physical examination Z00.00 Carlos West MD [address] [place] [address] Drive [address] [place] [id number] 12/10/2024 Carlos West Elevated LFTs R79.89 Carlos West MD [address] [place] [address] [id number] 10/29/2024 Carlos West Annual physical exam Z00.00 ; Reflux esophagitis K21.00 ; TMJ (temporomandibular joint syndrome) M26.609 ; Elevated LFTs R79.89 and Depression screening Z13.31 Carlos West MD [address] [place] [address] Drive [address] [place] [id number] 12/17/2024 Carlos West IBS (irritable bowel syndrome) K58.9 and Finger pain, left M79.645 Carlos West MD [address] [place] [address] [place] [id number] 07/02/2024 Carlos West Assessments Encounter Date Diagnosis (ICD Code) Assessment Notes Treatment Notes Treatment Clinical Notes Section Notes 10/15/2024 Blood tests for routine general physical examination (ICD-10 - Z00.00) 12/10/2024 Elevated LFTs (ICD-10 - R79.89) 10/29/2024 Annual physical exam (ICD-10 - Z00.00) labs reviewed and discussed with patient 10/29/2024 Reflux esophagitis (ICD-10 - K21.00) pending diagnostic testing 12/17/2024 IBS (irritable bowel syndrome) (ICD-10 - K58.9) referral to gi as he says the radiologist felt he couldn't tell what was in stomach so should be scoped, patient verbalized understanding of medication and directions for use 12/17/2024 Finger pain, left (ICD-10 - M79.645) pending diagnostic testing 10/29/2024 TMJ (temporomandibul ar joint syndrome) (ICD-10 - M26.609) he is going to go to [facility] 10/29/2024 Elevated LFTs (ICD-10 - R79.89) will continue to monitor, pending labs 10/29/2024 Depression screening (ICD-10 - Z13.31) negative screen Plan Of Treatment Pending Test Test Name Order Date XR GI SERIES 10/29/2024 Next Appt Details Provider Name:Carlos john, 10/28/2025 07:15:00 AM, [address] [place] [address], [place] [address], [place], [place], [phone], Provider Name:Carlos Johnson ier, 11/04/2025 02:30:00 PM, [address] [place] [address], [place] [address], [place], [place], [phone], Insurance Providers Payer Name Payer Address Payer Phone Subscriber Number Group Number Insured Name Patient Relationship to Insured Coverage Start Date Coverage End Date [employer] [address] [place], [place] [id number] Gregory Sewell Self - patient is the insured
--- OUTSIDE RECORDS SUMMARY | 2025-02-20 08:29 | XMS_ITS | Clinical Summary ---
Author Organization [facility] Address [address] [place] [address] Phone Care Team Providers Care Care Clinician Name Role Phone Unavailable Primary Care Provider [...] 69 01/15/2015 12:00 AM EDT Temperature 36.6 C (97.8 F) 01/18/2016 12:00 AM EDT Respiratory Rate - - Oxygen Saturation - [...] 04/03/1998, Additional history exists Influenza Vaccines (#1) 2025 03/19/2014, 02/26 COVID-19 Vaccine ( season) 2025 Hepatitis B Vaccines Completed 09/29/1997, 02/28/1997, 1995 [...] patient's age to complete this topic [place] [place] [address] HMO
--- OUTSIDE RECORDS SUMMARY | 2025-02-20 08:29 | XMS_ITS | Encounter Summary ---
Author Organization [facility] Address [address] [place] [address] Phone Care Team Providers Care Box Shook Patcher Name Role Phone Alla Menezes MD Primary Care Provider [phone] Encounter Details Date Type Department Care Team (Late st Contact Info) Description 08/16/2012 Documentation [facility] [place] Family Medicine [address] [place] [address] Family Medicine, Physician [address] [place], [place] [phone] Social History Tobacco Use Types Packs/Day Years [...] filedocumented in this encounter Care Teams Box Shook Patcher Relationship Specialty Start Date End Date Alla Menezes MD [address] [place] [address] RAINER Erwin [address] PCP - General 01/13/17 06/12/17 documented as of this encounter
--- OUTSIDE RECORDS SUMMARY | 2025-02-20 08:29 | XMS_ITS | Encounter Summary ---
Author Organization [facility] Address [address] [place] [address] Phone Care Team Providers Care Bobcat Driver/Labor Name Role Phone Alla Menezes MD Primary Care Provider [phone] Encounter Details Date Type Department Care Team (Late st Contact Info) Description 08/16/2012 Documentation [facility] [place] [address] [place] [address] Family Medicine, Physician [address] [place], [place] [phone] Social History Tobacco Use Types Packs/Day Years [...] on filedocumented in this encounter Care Teams Bobcat Driver/Labor Relationship Specialty Start Date End Date Alla Menezes MD [address] [place] [address] [place] [address] PCP - General 01/13/17 06/12/17 documented as of this encounter
--- OUTSIDE RECORDS SUMMARY | 2025-02-20 08:29 | XMS_ITS | Encounter Summary ---
Author Organization [facility] Address [address] [place] [address] Phone Care Team Providers Care License Clerk Name Role Phone Alla Menezes MD Primary Care Provider [phone] Encounter Details Date Type Department Care Team (Late st Contact Info) Description 08/19/2011 Documentation [facility] [place] [address] [place] [address] Family Medicine, Physician [address] [place], [place] [phone] Social History Tobacco Use Types Packs/Day Years [...] on filedocumented in this encounter Care Teams License Clerk Relationship Specialty Start Date End Date Alla Menezes MD [address] [place] [address] RA[place] [address] PCP - General 01/13/17 06/12/17 documented as of this encounter
--- OUTSIDE RECORDS SUMMARY | 2025-02-20 08:30 | XMS_ITS | Encounter Summary ---
Author Organization [facility] Address [address] [place] [address] Phone Care Team Providers Care Pan Helper Name Role Phone Alla Menezes MD Primary Care Provider [phone] Encounter Details Date Type Department Care Team (Late st Contact Info) Description 03/20/2014 Documentation [facility] [place] [address] [place] [address] Family Medicine, Physician [address] [place], [place] [phone] Social History Tobacco Use Types Packs/Day Years [...] on filedocumented in this encounter Care Teams Pan Helper Relationship Specialty Start Date End Date Alla Menezes MD [address] [place] [address] RAIN[place] [address] PCP - General 01/13/17 06/12/17 documented as of this encounter
--- OUTSIDE RECORDS SUMMARY | 2025-02-20 08:30 | XMS_ITS | Encounter Summary ---
Author Organization [facility] Address [address] [place] [address] Phone Care Team Providers Care Slipcover Cutter Name Role Phone Alla Menezes MD Primary Care Provider Encounter Details Date Type Department Care Team (Late st Contact Info) Description 01/10/2014 Documentation [facility] [place] Family Medicine [address] [place] [address] Family Medicine, Physician [address] [place], [place] [phone] Social History Tobacco Use Types Packs/Day Years [...] on filedocumented in this encounter Care Teams Slipcover Cutter Relationship Specialty Start Date End Date Alla Menezes MD [address] [place] [address] RA[place] [address] PCP - General 01/13/17 06/12/17 documented as of this encounter
--- OUTSIDE RECORDS SUMMARY | 2025-02-20 08:30 | XMS_ITS | Encounter Summary ---
Author Organization [facility] Address [address] [place] [address] Phone Care Team Providers Care Youth Director Name Role Phone Alla Menezes MD Primary Care Provider [phone] Encounter Details Date Type Department Care Team (Late st Contact Info) Description 03/20/2014 Documentation [facility] [place] Family Medicine [address] [place] [address] Family Medicine, Physician [address] [place], [place] [phone] Social History Tobacco Use Types [...] on filedocumented in this encounter Care Teams Youth Director Relationship Specialty Start Date End Date Alla Menezes MD [address] [place] [address] RAINER [place] [address] PCP - General 01/13/17 06/12/17 documented as of this encounter
--- OUTSIDE RECORDS SUMMARY | 2025-02-20 08:30 | XMS_ITS | Encounter Summary ---
Author Organization [facility] Address [address] [place] [address] Phone Care Team Providers Care Bottling Line Operator Name Role Phone Alla Menezes MD Primary Care Provider [phone] Encounter Details Date Type Department Care Team (Late st Contact Info) Description 01/19/2016 Documentation [facility] [place] [address] [place] [address] Family Medicine, Physician [address] [place], [place] [phone] Social History Tobacco Use Types Packs/Day Years [...] on filedocumented in this encounter Care Teams Bottling Line Operator Relationship Specialty Start Date End Date Alla Menezes MD [address] [place] [address] [place] [address] PCP - General 01/13/17 06/12/17 documented as of this encounter
--- OUTSIDE RECORDS SUMMARY | 2025-02-20 08:30 | XMS_ITS | Encounter Summary ---
Author Organization [facility] Address [address] [place] [address] Phone Care Team Providers Care District Wildlife Manager Name Role Phone Alla Menezes MD Primary Care Provider [phone] Encounter Details Date Type Department Care Team (Late st Contact Info) Description 01/19/2016 Documentation [facility] Family Medicine [address] [place] [address] Family Medicine, Physician [address] [place], [place] [phone] Social History Tobacco Use Types Packs/Day Years [...] on filedocumented in this encounter Care Teams District Wildlife Manager Relationship Specialty Start Date End Date Alla Menezes MD [address] [place] [address] RA[place] [address] PCP - General 01/13/17 06/12/17 documented as of this encounter
--- OUTSIDE RECORDS SUMMARY | 2025-02-20 08:30 | XMS_ITS | Encounter Summary ---
Author Organization [facility] Address [address] [place] [address] Phone Care Team Providers Care Laboratory Geneticist Name Role Phone Alla Menezes MD Primary Care Provider [phone] Encounter Details Date Type Department Care Team (Late st Contact Info) Description 01/10/2014 Documentation [facility] [place] [address] [place] [address] Family Medicine, Physician [address] [place], [place] [phone] Social History Tobacco Use Types Packs/Day Years [...] on filedocumented in this encounter Care Teams Laboratory Geneticist Relationship Specialty Start Date End Date Alla Menezes MD [address] [place] [address] RA[place] [address] PCP - General 01/13/17 06/12/17 documented as of this encounter
--- OUTSIDE RECORDS SUMMARY | 2025-02-20 08:30 | XMS_ITS | Encounter Summary ---
Author Organization [facility] Address [address] [place] [address] Phone Care Team Providers Care Vegetable Grader Name Role Phone Alla Menezes MD Primary Care Provider [phone] Encounter Details Date Type Department Care Team (Late st Contact Info) Description 01/16/2015 Documentation [facility] [place] Family Medicine [address] [place] [address] Family Medicine, Physician [address] [place], [place] [phone] Social History Tobacco Use Types Packs/Day Years [...] on filedocumented in this encounter Care Teams Vegetable Grader Relationship Specialty Start Date End Date Alla Menezes MD [address] [place] [address] RA[place] [address] PCP - General 01/13/17 06/12/17 documented as of this encounter
--- OUTSIDE RECORDS SUMMARY | 2025-02-20 08:30 | XMS_ITS | Encounter Summary ---
Author Organization [facility] Address [address] [place] [address] Phone Care Team Providers Care Parcel Contractor Name Role Phone Alla Menezes MD Primary Care Provider [phone] Encounter Details Date Type Department Care Team (Late st Contact Info) Description 01/09/2014 Documentation [facility] [place] [address] [place] [address] Family Medicine, Physician [address] [place], [place] [phone] Social History Tobacco Use Types Packs/Day Years [...] on filedocumented in this encounter Care Teams Parcel Contractor Relationship Specialty Start Date End Date Alla Menezes MD [address] [place] [address] RA[place] [address] PCP - General 01/13/17 06/12/17 documented as of this encounter
--- OUTSIDE RECORDS SUMMARY | 2025-02-20 08:30 | XMS_ITS | Encounter Summary ---
Author Organization [facility] Address [address] [place] [address] Phone Care Team Providers Care Timber Incisor Operator Name Role Phone Alla Menezes MD Primary Care Provider [phone] Encounter Details Date Type Department Care Team (Late st Contact Info) Description 01/10/2014 [place] [facility] [place] [address] [place] [address] Family Medicine, Physician [address] [place], [place] [phone] Social History Tobacco Use Types Packs/Day Years [...] on filedocumented in this encounter Care Teams Timber Incisor Operator Relationship Specialty Start Date End Date Alla Menezes MD [address] [place] [address] RAINER [place] [address] PCP - General 01/13/17 06/12/17 documented as of this encounter
--- OUTSIDE RECORDS SUMMARY | 2025-02-20 08:30 | XMS_ITS | Encounter Summary ---
Author Organization [facility] Address [address] [place] [address] Phone Care Team Providers Care Cable Splicing Technician Name Role Phone Alla Menezes MD Primary Care Provider [phone] Encounter Details Date Type Department Care Team (Late st Contact Info) Description 01/19/2016 Documentation [facility] Family Medicine [address] [place] [address] Family Medicine, Physician [address] [place], [place] [phone] Social History Tobacco Use Types Packs/Day Years [...] on filedocumented in this encounter Care Teams Cable Splicing Technician Relationship Specialty Start Date End Date Alla Menezes MD [address] [place] [address] RA[place] [address] PCP - General 01/13/17 06/12/17 documented as of this encounter
--- OUTSIDE RECORDS SUMMARY | 2025-02-20 08:30 | XMS_ITS | Encounter Summary ---
Author Organization [facility] Address [address] [place] [address] Phone Care Team Providers Care Clin Asst Name Role Phone Alla Menezes MD Primary Care Provider [phone] Encounter Details Date Type Department Care Team (Late st Contact Info) Description 01/16/2015 Documentation [facility] [place] Family [place] [address] [place] [address] Family Medicine, Physician [address] [place], [place] [phone] Social History Tobacco Use Types Packs/Day Years [...] on filedocumented in this encounter Care Teams Clin Asst Relationship Specialty Start Date End Date Alla Menezes MD [address] [place] [address] RAINER [place] [address] PCP - General 01/13/17 06/12/17 documented as of this encounter
--- OUTSIDE RECORDS SUMMARY | 2025-02-20 08:30 | XMS_ITS | Encounter Summary ---
Author Organization [facility] Address [address] [place] [address] Phone Care Team Providers Care Industrial Accountant Name Role Phone Alla Menezes MD Primary Care Provider [phone] Encounter Details Date Type Department Care Team (Late st Contact Info) Description 01/15/2015 Documentation [facility] Family Medicine [address] [place] [address] Family Medicine, Physician [address] [place], [place] [phone] Social History Tobacco Use Types Packs/Day Years [...] on filedocumented in this encounter Care Teams Industrial Accountant Relationship Specialty Start Date End Date Alla Menezes MD [address] [place] [address] RA[place] [address] PCP - General 01/13/17 06/12/17 documented as of this encounter
--- OUTSIDE RECORDS SUMMARY | 2025-02-20 08:30 | XMS_ITS | Encounter Summary ---
Author Organization [facility] Address [address] [place] [address] Phone Care Team Providers Care Editor Greeting Card Name Role Phone Alla Menezes MD Primary Care Provider [phone] Encounter Details Date Type Department Care Team (Late st Contact Info) Description 01/15/2015 Documentation [facility] [place] Family Medicine [address] [place] [address] Family Medicine, Physician [address] [place], [place] [phone] Social History Tobacco Use Types Packs/Day Years [...] on filedocumented in this encounter Care Teams Editor Greeting Card Relationship Specialty Start Date End Date Alla Menezes MD [address] [place] [address] RAIN[place] [address] PCP - General 01/13/17 06/12/17 documented as of this encounter
--- OUTSIDE RECORDS SUMMARY | 2025-02-20 08:30 | XMS_ITS | Encounter Summary ---
Author Organization [facility] Address [address] [place] [address] Phone Care Team Providers Care Family Day Care Provider Name Role Phone Alla Menezes MD Primary Care Provider [phone] Encounter Details Date Type Department Care Team (Late st Contact Info) Description 01/19/2016 Documentation [facility] [place] Family Medicine [address] [place] [address] Family Medicine, Physician [address] [place], [place] [phone] Social History Tobacco Use Types Packs/Day Years [...] on filedocumented in this encounter Care Teams Family Day Care Provider Relationship Specialty Start Date End Date Alla Menezes MD [address] [place] [address] RAINER [place] [address] PCP - General 01/13/17 06/12/17 documented as of this encounter
== END 2025-02-20 08:08 | disposition home or self-care (01) ==
LOC: HO.XRAY 08:07
PROVIDERS: PCP Internal Medicine; Visit Provider Internal Medicine
DX: K21.00 Gastro-esophageal reflux disease with esophagitis, without bleeding (principal)
CPT/HCPCS: 74240; 74246

== ENCOUNTER → 2025-02-20 08:09 | Outpatient (BNV) | payer BC, SELFPAY | PROVIDERS: PCP Internal Medicine; Visit Provider Radiology Diagnostic Radiology | DX: K21.9 Gastro-esophageal reflux disease without esophagitis (principal) | CPT/HCPCS: 74246 ==